=== PATIENT | male | born 1940 | race Caucasian/White ===

== ENCOUNTER 2017-02-09 13:14 | Day surgery (SDC) | payer MEDICARE ==
[2017-02-05 14:51] VITALS: BMI 26.9
[2017-02-09 13:43] LABS: Basophils % (A) 0 %; CH 30.2; CHCM 34.2; Eosinophils # (A) 0.1 k/uL (0-0.7); Eosinophils % (A) 1 %; HCT 46.4 % (39.0-53.0); HDW 2.61; HGB 15.7 gm/dL (13.0-17.5); Luc # (Auto) 0.17; Luc % (Auto) 3; Lymphocytes # (A) 1.8 k/uL (1.0-4.8); Lymphocytes % (A) 34 %; MCH 30.1 pg (25.0-35.0); MCHC 33.9 g/dL (31.0-37.0); MCV 88.7 fL (80.0-100.0); Monocytes # (A) 0.3 k/uL (0-1.0); Monocytes % (A) 6 %; Neutrophils # (A) 2.9 k/uL (1.3-7.7); Neutrophils % (A) 55 %; RBC 5.23 m/uL (4.30-5.90); RDW 13.3 % (11.5-15.5); WBC 5.2 k/uL (3.8-10.6); WBC (Perox) 5.32
[2017-02-09] MEDS ORDERED: fentaNYL (PF) 50 MCG/ML 2 ML AMP ONE (15:01)
[2017-02-09] MEDS ORDERED: PROPOFOL 10 MG/ML 20 ML VIAL IV ONE (15:01)
[2017-02-09] MEDS ORDERED: MIDAZOLAM 2 MG/2 ML VIAL ONE (15:01)
[2017-02-09] MEDS ORDERED: ISOPROTERENOL 250 MCG/1.25 ML SYR IV ONE (15:01)
[2017-02-09] MEDS ORDERED: diphenhydrAMINE 50 MG/ML 1 ML VIAL ONE (15:01)
[2017-02-09] MEDS ORDERED: IV FLUID CONTINUATION 900 ML IV ONE (15:01)
[2017-02-09] MEDS ORDERED: LIDOCAINE 2% INJ 20 MG/ML SQ ONE ×2 (15:38→15:40)
[2017-02-09] MEDS ORDERED: HEPARIN SODIUM (1,000 UNIT/ML) 1,000 UNIT in SODIUM CHLORIDE 0.9% 1,000 ML IRRIGATION ONE (16:02)
[2017-02-09] MEDS ORDERED: LACTATED RINGERS 1,000 ML IV ONE (18:44)
[2017-02-09] MEDS ORDERED: ACETAMINOPHEN TAB 325 MG TAB PO PRN (19:11)
--- NOTE | 2017-02-09 19:21 | P.PCN ---
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
[2017-02-09] MEDS ORDERED: FUROSEMIDE 10 MG/ML 2 ML VIAL IV STA (19:31)
[2017-02-09] MEDS ORDERED: ACETAMINOPHEN IV (For NPO) 1,000 MG in EMPTY BAG 1 BAG IVPB ONE (20:15)
--- NOTE | 2017-02-09 20:36 | CE ---
This is a 77-year-old male patient who was referred by Dr. Way for evaluation and management of recurrent atrial flutter. He has a prolonged FL interval at baseline and I recommended atrial flutter ablation. The patient was brought to the EP lab in the fasting state. Written informed consent was obtained prior to the procedure. The right and left groins were prepped and draped as per protocol. Two venous sheaths were placed in the right femoral vein and one venous sheath in the left femoral vein. Diagnostic catheters in the high right atrial area, His bundle area, RV and coronary sinus were placed. Laser mapping and ablation catheters were placed and intracardiac echo catheter was placed. The sinus cycle length 958 ms, FL interval 288 ms at baseline, QRS 160 ms, QT interval 423 ms. Baseline AH interval 59 ms, baseline HV interval 43 ms. Sinus node recovery times were 600, 500 and 400 ms, were 924, 1222 and 1192 ms, corresponding corrected sinus node recovery times were normal limits. Slow pathway conduction was noted at a pacing cycle length of 460 ms, AV evan Wenckebach block 410 ms. VA Wenckebach block pattern at less than 400 ms, which improved on Isuprel. On Isuprel, SVT with short septal time was very easily induced both spontaneously on Isuprel as well as with minimal pacing either in the right ventricle or in the high right atrium. Entrainment was performed from the RV; however, the tachycardia repeatedly terminated, but the tachycardia was consistent with AV evan re-entry with a very short septal time of less than 60 ms. Intracardiac echocardiography was performed. The cavo-tricuspid isthmus was mapped and the pouches were identified. The thick eustachian ridge was identified. RF ablation was performed using the irrigated-tip catheter with adequate contact force and power of between 30-35 moyer. A complete anatomic line of block was made from the tricuspid annulus to the IVC. Testing of this line revealed in the isthmus conduction time was greater than 189 ms in either direction. This was uniform all along the line. Subsequently, bi-directional block was also proven with differential pacing. Following that, Isuprel was used and SVT was very easily induced. This SVT was consistent with AV evan re-entry. Therefore, a different sheath was used. The irrigated-tip catheter was used; 20 moyer of power was used. Mapping of the slow pathway and mapping of the His bundle cloud and the coronary sinus was performed. The His bundle cloud was quite close to the coronary sinus os and was rather low. RF ablation was initially performed just anterior and below the coronary sinus; however, this did not result in elimination of the tachycardia. RF ablation, mapping and ablation was performed off the coronary sinus os, off the septum and even this did not result in elimination of the slow pathway and SVT could be induced very easily on Isuprel. It took 2 hours for mapping and ablation of the slow pathway. We finally achieved elimination of the slow pathway as well as change in the VA conduction time when RF ablation was performed within the coronary sinus at its roof. A linear lesion was made along the roof within the coronary sinus and about 0.5 cm within the coronary sinus was where the successful lesion was applied. 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 However, this was finally not needed. This mapping and ablation procedure was a long one that required careful assessment of the FL interval after every RF lesions, since the baseline FL interval was prolonged at 288 ms, the anatomy and the relative position of the His bundle versus the coronary sinus was unusual and were close to one another. However, the FL interval did not prolong or worsen with RF ablation and remained stable. At the end of the procedure, the VA Wenckebach block was 470 ms, AV node Wenckebach block 440 from the coronary sinus and 390 from the high right atrium. There was no evidence of slow pathway conduction RESULTS: 1. Successful mapping and ablation of atrial flutter. 2. 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 3. Baseline FL interval is 288 ms and this remained unchanged following successful ablations. 4. The patient tolerated the procedure well without any acute complications. PLAN: Watch FL interval. Watch for development of atrial fibrillation. Avoid AV evan blocking drugs and anti-arrhythmic drugs for any future episodes of atrial fibrillation. This was discussed with the patient's .
--- NOTE | 2017-02-09 20:44 | LTR ---
February 09, 2017 RE: Nav Rabago Dear Dr. Way: Thank you for referring Mr. Nav Rabago for electrophysiologic evaluation for atrial flutter. Mr. Rabago has a prolonged NC interval at baseline and therefore is not a good candidate for anti-arrhythmic drug therapy. In any case, I recommended atrial flutter ablation because of his high success rate. He underwent successful atrial flutter ablation with complete bidirectional block across the RF line. Following that, testing revealed that he also had AV evan re-entry. This was a more difficult mapping procedure because of unusual relationship between the His bundle and the coronary sinus. In addition, his NC interval is prolonged at baseline. This was a left-sided AV evan re-entrant tachycardia and successful ablation was finally achieved within the body of the coronary sinus at its roof just about a centimeter inside of the coronary sinus os. In any case, both these arrhythmias have been successfully eliminated, but obviously Mr. Rabago remains at risk of atrial fibrillation. He is not a candidate for AV evan blocking drugs, nor is he a candidate for anti-arrhythmic drug therapy if he were to develop atrial fibrillation in the future. Certainly, management of obstructive sleep apnea will reduce his future episodes of atrial arrhythmias. Once again, thank you for entrusting me with the care of your patient. Warm regards. Sincerely, ALLYN GREEN MD
[2017-02-09] MEDS: SODIUM CHLORIDE 0.9% 1,000 ML IV SCH (22:23)
[2017-02-09] MEDS: APIXABAN 5 MG TAB PO SCH (23:02)
[2017-02-10] MEDS ORDERED: TEMAZEPAM 15 MG CAP PO PRN (00:17)
[2017-02-10 04:21] VITALS: RESP 18
--- NOTE | 2017-02-10 07:58 | P.DS ---
Providers Attending physician: Nawaf Martinez Primary care physician: Stated None Hospital Course: Patient is doing well. 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 and elimination of slow pathway antegradely and prolongation of VA conduction times Prolonged IA interval at baseline, 280 ms LACY VASC score of at least 2, anticoagulation indicated Plan Continue anticoagulation, discussed with the patient today He finds it difficult to afford the newer agents and therefore he may switch to Coumadin until his insurance changes in August 2017 Avoid AV evan blocking drugs completely including beta blockers and diltiazem, verapamil and digoxin If he has paroxysms of symptomatic atrial fibrillation, rate control medications were be problematic and would necessitate permanent pacing. Cryoblation may be considered for symptomatic PAF in the future, if need be Discharge home today in follow-up on Wednesday for a groin check Follow-up Holter monitor in 6 weeks and follow-up with Dr. Koenig in 8 weeks Patient Condition at Discharge: Stable Plan - Discharge Summary Discharge Medication List Apixaban [Eliquis] 5 mg PO BID 02/05/17 [History] Cholecalciferol [Vitamin D3] 2,000 unit PO DAILY 02/05/17 [History] [place]-3 Fatty Acids/Fish Oil [Fish Oil 1,000 mg Softgel] 1 each PO DAILY [History] Saw [place] 450 mg PO DAILY 02/05/17 [History] Activity/Diet/Wound Care/Special Instructions: Post EP study - Ablation instructions 1. Keep access sites dry for 2 days. 2. No heavy lifting or straining for 2 days. 3. Avoid bending the hips repeatedly for 2 days. 4. You may go up and down stairs slowly Call if the following is noted 1. Bleeding, increasing swelling or pain at the access sites. 2. Increasing chest discomfort, especially upon taking a deep breath. 3. Increasing shortness of breath, at rest or with exertion. 4. Undue cough / phlegm 5. Difficulty or pain while swallowing. 6. Pain or change in color in the extremities. 7. Fever, chills, rigors. 8. Increasing headache or neurologic symptoms. 9. Dizziness, fainting, palpitations Follow-up on Wednesday Discharge Disposition: HOME SELF-CARE
[2017-02-10] MEDS: APIXABAN 5 MG TAB PO SCH (09:15)
[2017-02-10 11:58] VITALS: BP 109/61; PULSE 68; TEMP 97.9
[2017-02-10] MEDS: SODIUM CHLORIDE 0.9% 1,000 ML IV SCH (13:33)
== END 2017-02-10 13:40 | disposition home or self-care (01) ==
LOC: CATHEP 13:14 → 3OBS 19:09 → CATHEP 02-10 13:40
PROVIDERS: ATTEND Internal Medicine Clinical Cardiac Electrophysiology
DX: I48.3 Typical atrial flutter (principal); G47.33 Obstructive sleep apnea (adult) (pediatric); Z99.89 Dependence on other enabling machines and devices; Z79.01 Long term (current) use of anticoagulants; Z79.82 Long term (current) use of aspirin; Z79.899 Other long term (current) drug therapy
CPT/HCPCS: 93623; 93613; 93653; 93655; 85025; C1894; C1769; C1893 ×2; C1730 ×3; C1759; C1732; J2001; J2250; J1200; J1940; J3010; J1644; J2704; 93662

== ENCOUNTER 2017-03-15 11:07 | Day surgery (SDC) | payer MEDICARE ==
[2017-03-12 09:02] VITALS: BMI 26.4
[~2017-03-15 11:07] MED LIST: SODIUM CHLORIDE 0.9% 1,000 ML IV SCH; ceFAZolin 1,000 MG in SODIUM CHLORIDE 0.9% IRRIGATIO 250 ML IRRIGATION ONE
[2017-03-15 11:27] VITALS: TEMP 97.7
[2017-03-15 11:44] LABS: Basophils # (A) 0.1 k/uL (0-0.2); Basophils % (A) 1 %; CH 30.5; CHCM 33.6; Eosinophils # (A) 0.1 k/uL (0-0.7); Eosinophils % (A) 2 %; HCT 47.1 % (39.0-53.0); HDW 2.47; HGB 15.3 gm/dL (13.0-17.5); Luc # (Auto) 0.13; Luc % (Auto) 2; Lymphocytes # (A) 1.5 k/uL (1.0-4.8); Lymphocytes % (A) 28 %; MCH 29.5 pg (25.0-35.0); MCHC 32.4 g/dL (31.0-37.0); Mean Platelet Volume 6.2; Monocytes # (A) 0.3 k/uL (0-1.0); Monocytes % (A) 6 %; Neutrophils # (A) 3.3 k/uL (1.3-7.7); Neutrophils % (A) 61 %; RBC 5.18 m/uL (4.30-5.90); RDW 13.4 % (11.5-15.5); WBC 5.4 k/uL (3.8-10.6); WBC (Perox) 5.23
[2017-03-15 11:56] LABS: Anion Gap 8 mmol/L; Blood Urea Nitrogen 17 mg/dL (9-20); Calcium 9.3 mg/dL (8.4-10.2); Carbon Dioxide 26 mmol/L (22-30); Chloride 107 mmol/L (98-107); Glucose 93 mg/dL (74-99); Non-African American GFR(MDRD) >60 (>60 ml/min/1.73 sqM); Potassium 4.3 mmol/L (3.5-5.1); Sodium 141 mmol/L (137-145)
[2017-03-15] MEDS ORDERED: MIDAZOLAM 2 MG/2 ML VIAL ONE (13:49)
--- NOTE | 2017-03-15 13:55 | P.DS ---
Providers Attending physician: Nawaf Martinez Primary care physician: Stated None Hospital Course: Twelve-lead ECG report Sinus mechanism heart rates 55 beats a minute [place] interval mildly prolonged to 56 ms narrow QRS normal ST segments normal QT interval Tilt table test report Baseline blood pressure 117/76. His mercury Baseline heart rate 67 beats a minute Patient was tilted upright while of 70 per protocol There was a gradual decline in his blood pressure to 90 mmHg with thereafter there was a sudden drop in blood pressure to 70 mmHg the sudden drop in heart rate with pauses when he is laid supine his heart rate and blood pressure normalized. He briefly passed out during this episode Impression Mixed neuro cardiogenic response to upright tilting with simultaneous drop in heart rate and blood pressure. Lowest heart rate of 32 beats a minute Normalization of blood pressure and heart rate upon resuming supine position Patient Condition at Discharge: Stable Plan - Discharge Summary Discharge Medication List Apixaban [Eliquis] 5 mg PO BID 02/05/17 [History] Cholecalciferol [Vitamin D3] 2,000 unit PO DAILY 02/05/17 [History] [place]-3 Fatty Acids/Fish Oil [Fish Oil 1,000 mg Softgel] 1 each PO DAILY [History] Saw [place] 450 mg PO DAILY 02/05/17 [History] Omeprazole [PriLOSEC] 10 mg PO DAILY 03/12/17 [History]
[2017-03-15] MEDS: MIDAZOLAM 2 MG/2 ML VIAL IVP ONE ×2 (14:00→14:06)
[2017-03-15] MEDS: ceFAZolin 2 GM in SODIUM CHLORIDE 0.9% 100 ML IVPB ONE ×2 (14:00→14:07)
[2017-03-15] MEDS ORDERED: LIDOCAINE 2% INJ 20 MG/ML SQ ONE (14:02)
[2017-03-15] MEDS ORDERED: SODIUM CHLORIDE 0.9% 500 ML IV ONE (14:06)
--- NOTE | 2017-03-15 14:15 | P.PCN ---
Preoperative Diagnosis: Loop monitor implant Primary physicians: Field Care Coordinator: Dr. Koenig Indication: And dizzy spells and syncope, mildly prolonged RI interval of 256 ms Patient was brought to the EP lab in a fasting state. Written informed consent was obtained prior to the procedure. The left pectoral area was prepped and draped per protocol. Intravenous antibiotic was administered preoperatively. A subcutaneous Loop monitor was implanted successfully and the wound was closed per protocol. The device was programmed to detect significant anu- arrhythmic and tachy-arrhythmic events, per protocol. Device and programming details: Syncope protocol programmed Patient underwent EP procedure under conscious sedation/moderate sedation, monitoring of the level of consciousness and physiologic parameters including but not limited to vital signs and oxygenation. Patient tolerated the procedure well without any acute complications. Start time: 1402 Stop time: 1413 1 mg IV Versed Disposition: same day
--- NOTE | 2017-03-15 14:18 | P.PCN ---
Preoperative Diagnosis: Twelve-lead ECG report Sinus mechanism heart rates 55 beats a minute [place] interval mildly prolonged to 56 ms narrow QRS normal ST segments normal QT interval Tilt table test report Baseline blood pressure 117/76. His mercury Baseline heart rate 67 beats a minute Patient was tilted upright while of 70 per protocol There was a gradual decline in his blood pressure to 90 mmHg with thereafter there was a sudden drop in blood pressure to 70 mmHg the sudden drop in heart rate with pauses when he is laid supine his heart rate and blood pressure normalized. He briefly passed out during this episode Impression Mixed neuro cardiogenic response to upright tilting with simultaneous drop in heart rate and blood pressure. Lowest heart rate of 32 beats a minute Normalization of blood pressure and heart rate upon resuming supine position Disposition: same day
[2017-03-15 14:36] VITALS: BP 124/77; PULSE 54; RESP 16
== END 2017-03-15 14:55 | disposition home or self-care (01) ==
LOC: CATHEP 11:07
PROVIDERS: ATTEND Internal Medicine Clinical Cardiac Electrophysiology
DX: R55 Syncope and collapse (principal); I47.1 Supraventricular tachycardia; I48.3 Typical atrial flutter; G47.33 Obstructive sleep apnea (adult) (pediatric); Z79.01 Long term (current) use of anticoagulants
CPT/HCPCS: 93005; 33282; 93660; 80048; 85025; 99152; C1764; J2001; J2250; J0690

== ENCOUNTER → 2017-04-22 | Outpatient (CLI) | payer MEDICARE ==
--- NOTE | 2017-04-22 16:12 | PN ---
DATE OF SERVICE: 04/22/2017 This patient is a 77-year-old gentleman who has been followed in the sleep center for treatment of obstructive sleep apnea-hypopnea syndrome and excessive daytime sleepiness. Patient is on treatment with CPAP with a pressure of 9 cm of water. I checked his CPAP unit. It showed that patient used it every night for the whole night 100% of the time with average usage for 6 hours. Patient's usual sleep schedule is from around 11:30 p.m. until 6 a.m. If he goes to bed earlier, then he gets up earlier. He sleeps well during the night. He is practically able to sleep through the whole night without awakenings, but patient continues to have significant excessive daytime sleepiness during the day. He falls asleep while reading the newspaper, falls asleep while working on his computer. [place] Sleepiness Scale is 20. He naps during the day and feels better right after the naps. Patient does not remember dreams during naps, but at night he dreams. He does not remember dreams while falling asleep. MEDICATIONS: 1. Aspirin. 2. Eliquis. 3. Vitamins. PHYSICAL EXAMINATION: Patient in no distress. VITAL SIGNS: BP 140/72, HR 54, RR 16. Height 6 feet 3 inches. Weight 206. BMI 25.7. Temperature 97.7. Oxygen saturation at room air 95%. HEENT: PERRLA, EOMI. Evaluation of oropharynx showed tongue protrudes midline; extremely low position of soft palate. NECK: Supple. No JVD. Thyroid is not palpable. LUNGS: Clear to percussion and to auscultation. Good air exchange. No wheezing or rhonchi. HEART: S1, S2 regular. No murmurs, gallops or rubs. ABDOMEN: Soft and nontender. Bowel sounds are present. No organomegaly appreciated. EXTREMITIES: No clubbing or cyanosis. CLAMP FORKLIFT OPERATOR: Awake, alert, and oriented x3. Cranial nerves 2 to 7 intact. There is no fasciculation or atrophy noted. No focal deficits observed. IMPRESSION: 1. Obstructive sleep apnea-hypopnea syndrome. Patient demonstrated 100% compliance with treatment but continues to have significant excessive daytime sleepiness during the day, which dictates necessity to question additional diagnosis of hypersomnia. 2. History of episodes of paroxysmal atrial flutter. 3. History of hypertension. 4. Acid reflux. PLAN: 1. Continue treatment with CPAP at the pressure of 9 cm of water every night for the whole night. 2. We will proceed with multiple sleep latency test after the night on CPAP in sleep center, when we will recheck his pressure to be sure that his respiration is under control. 3. Sleep hygiene with regular time in bed for at least 8 hours. 4. No driving if feeling any sleepiness. 5. I will see the patient for follow-up visit after testing is done, following the plan. Thank you very much for allowing me to participate in the management of your patient. Sincerely, Kamlesh Way MD, PhD, FAASM. Diplomat of [place] [employer], Sleep Medicine Board by [employer], [place] [employer]
== END | disposition home or self-care (01) ==
LOC: SLEEP 10:27
PROVIDERS: ATTEND Internal Medicine
DX: G47.33 Obstructive sleep apnea (adult) (pediatric) (principal); Z79.899 Other long term (current) drug therapy; I48.92 Unspecified atrial flutter

== ENCOUNTER → 2017-10-07 | Outpatient (CLI) | payer MEDICARE ==
--- NOTE | 2017-10-07 16:48 | PN ---
PROGRESS NOTE DATE OF SERVICE: 10/07/2017 77-year-old gentleman has been followed in Sleep Center for treatment of obstructive sleep apnea-hypopnea syndrome and excessive daytime sleepiness. Recently we proceed with CPAP titration and multiple sleep latency test on the following day. With the titration patient respiration was on full control with the pressure of 9 cm of water. At that pressure, apnea-hypopnea index was 0.3. On the following day, the patient had multiple sleep latency test with 5 naps. Mean sleep latency was 7.5 minutes, which is less than 8 minutes and subsequently could be considered indication for possible hypersomnia like narcolepsy. I discussed results of the sleep study with the patient. She continued to use CPAP equipment every night. I checked CPAP unit. Usage is 70/30 nights for more than 4 hours, average 6.7 hours. [place] Sleepiness Scale today is 20. MEDICATIONS: Eliquis, fish oil, prostate supplement, vitamin D3 2000 mg. PHYSICAL EXAM: Patient in no distress, BP 105/69, HR 78, RR 16, weight 217, temperature 97.3, oxygen saturation room air 95%. Oropharynx low position of soft palate. Heart rate is normal and there is no atrial fibrillation. Neck Supple, no JVD. Thyroid is not palpable. LUNGS Clear to percussion and to auscultation. Good air exchange. No wheezing or rhonchi. HEART S1, S2 regular. No murmurs, gallops, or rubs. ABDOMEN Soft and nontender. Bowel sounds are present. No organomegaly appreciated. EXTREMITIES No clubbing or cyanosis. LABEL MAKER Awake, alert, and oriented X3. Cranial nerves 2 to 7 intact. There is no fasciculation or atrophy. noted. No focal deficits observed. IMPRESSION: 1. Obstructive sleep apnea-hypopnea syndrome on control with CPAP at 9 cm of water. 2. Multiple sleep latency test confirmed sleepiness while patient is on full-time treatment with CPAP. 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 3. History of episodes of paroxysmal atrial flutter noted recently. 4. History of hypertension in the past about 40 years ago. 5. Acid reflux occasionally. PLAN: 1. I will start the patient on treatment with modafinil, starting with the smallest dose, slowly adjusting dose to prevent sleepiness. 2. Continue to use CPAP equipment every night. 3. Sleep hygiene with regular time in bed for at least 8 hours. 4. No driving if feeling sleepiness. Thank you very much for allowing me to participate in management of your patient. Sincerely, Kamlesh Way MD, PhD, FAASM Diplomat of [employer] [employer] [employer] Addressograph Operator of [facility] [place] MMODL / DERIANN: [id number] /
== END | disposition home or self-care (01) ==
LOC: SLEEP 14:48
PROVIDERS: ATTEND Internal Medicine
DX: G47.33 Obstructive sleep apnea (adult) (pediatric) (principal); K21.9 Gastro-esophageal reflux disease without esophagitis; Z86.79 Personal history of other diseases of the circulatory system; Z79.01 Long term (current) use of anticoagulants

== ENCOUNTER → 2018-03-10 | Outpatient (CLI) | payer MEDICARE ==
--- NOTE | 2018-03-10 11:37 | SFUN ---
SLEEP CENTER FOLLOW UP NOTE DATE OF SERVICE: 03/10/2018 This 78-year-old gentleman had been followed in sleep center for treatment of obstructive sleep apnea-hypopnea syndrome. Patient continued to use his CPAP equipment every night for the whole night. He usually goes to bed around 11 or 12 and wakes up at 5 or 6 a.m. Subsequently, he sleeps for about 6 hours. He may feel sleepy during the day. [place] Sleepiness Scale increased to 21. If he goes to bed early than 11 then he gets up earlier. During the night for 6 hours, he sleeps through well. I checked his CPAP unit. CPAP pressure is 9 cm of water. Patient using it 100% of the time and more than 4 hours. Average usage is 6.1 hours. MEDICATIONS: Eliquis, fish oil, vitamin D3. PHYSICAL EXAM: During physical exam, gentleman without distress. VITAL SIGNS: BP 118/69, HR 82, RR 16, height , weight 217, which is the same as 1 year ago, BMI 26.9, temp 97.6, oxygen saturation on room air 95%. HEENT: PERRLA, EOMI. Oropharynx low position of soft palate. NECK: Supple, no JVD. Thyroid is not palpable. LUNGS: Clear to percussion and to auscultation. Good air exchange. No wheezing or rhonchi. HEART: S1, S2 regular. No murmurs, gallops, or rubs. ABDOMEN: Soft and nontender. Bowel sounds are present. No organomegaly appreciated. EXTREMITIES: No clubbing or cyanosis. HOSPITALITY HOUSEKEEPER: Awake, alert, and oriented X3. Cranial nerves 2 to 7 intact. There is no fasciculation or atrophy. noted. No focal deficits observed. IMPRESSION: 1. Obstructive sleep apnea-hypopnea syndrome. The patient demonstrated 100% compliance with treatment, benefitting from treatment. 2. 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 3. History of episodes of paroxysmal atrial fibrillation, atrial flutter. 4. History of hypertension. 5. Acid reflux. PLAN: 1. Continue treatment with CPAP every night for the whole night. 2. Sleep hygiene with regular time in bed for 7-1/2 hours. 3. Precautions related to driving. No driving if feeling sleepiness. 4. We will try to get patient modafinil treatment. Previously, patient tried to check and the delatorre was extremely high. He was not able to receive medication. He does not have drug coverage at the present time. Thank you very much for allowing me to participate in management of your patient. Sincerely, Kamlesh Way MD, PhD, FAASM Diplomat of [place] [employer] [employer] Performance Test Consultant of [facility] [place] MMODL / IJN: [id number] /
== END | disposition home or self-care (01) ==
LOC: SLEEP 10:22
PROVIDERS: ATTEND Internal Medicine
DX: G47.33 Obstructive sleep apnea (adult) (pediatric) (principal); K21.9 Gastro-esophageal reflux disease without esophagitis; Z86.79 Personal history of other diseases of the circulatory system; Z79.01 Long term (current) use of anticoagulants; Z79.899 Other long term (current) drug therapy; Z99.89 Dependence on other enabling machines and devices

== ENCOUNTER → 2019-05-11 | Outpatient (CLI) | payer MEDICARE ==
--- NOTE | 2019-05-11 13:08 | SFUN ---
SLEEP CENTER FOLLOW UP NOTE DATE OF SERVICE: 05/11/2019 This 79-year-old gentleman had been followed in sleep center for treatment of obstructive sleep apnea-hypopnea syndrome and significant excessive daytime sleepiness while he is on treatment with CPAP. Previous multiple sleep latency test confirmed sleepiness and with range of possible narcolepsy. Patient was recommended to try modafinil. He started to take modafinil, but in the same days he developed dizziness and he stopped taking modafinil and also he stopped taking several other medications. Presently, he continued to use his CPAP equipment every night without significant problems with the machine or CPAP equipment. He continued to feel sleepy during the day, but he able to correct it with short naps and after short naps for about 10 minutes his alertness become normal. Usually he feels sleepiness if he is not busy. If he is busy, he is able to keep himself in alert condition. I checked his CPAP unit. Usage is 29 out of 30 nights for more than 4 hours with average usage 6 hours. Machine does not have information about apnea-hypopnea index. [place] Sleepiness Scale is 20. MEDICATIONS: Metoprolol, , vitamins. PHYSICAL EXAMINATION: During physical exam, patient in no distress. VITAL SIGNS: BP 99/69, HR 67, RR 14, height 6 feet 2-1/2 inches, weight 213.0 pounds, body mass index 26.9, temperature 97.0, oxygen saturation at room air 95%. HEENT: PERRLA, EOMI. Oropharynx low position of soft palate. NECK: Supple, no JVD. Thyroid is not palpable. LUNGS: Clear to percussion and to auscultation. Good air exchange. No wheezing or rhonchi. HEART: S1, S2 regular. No murmurs, gallops, or rubs. ABDOMEN: Soft and nontender. Bowel sounds are present. No organomegaly appreciated. EXTREMITIES: No clubbing or cyanosis. VENTILATOR SPECIALIST: Awake, alert, and oriented X3. Cranial nerves 2 to 7 intact. There is no fasciculation or atrophy. noted. No focal deficits observed. IMPRESSION: 1. Obstructive sleep apnea-hypopnea syndrome. Patient demonstrated 100% compliance with treatment, benefitting from treatment. 2. 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 The patient was tried on treatment with modafinil for several days, but developed dizziness and patient stopped medication. With the usage of short naps, the patient is able to control his sleepiness during the day. 3. History of episodes of paroxysmal atrial fibrillation and atrial flutter. 4. 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 5. History of hypertension. 6. Acid reflux. PLAN: 1. Patient will continue to use CPAP equipment every night for the whole night. 2. We will replace CPAP unit as soon as he will be eligible with the insurance regulation to check reading for apnea-hypopnea index. 3. Sleep hygiene with regular time in bed for at least 8 hours. 4. Extreme precautions related to driving. No driving if feeling sleepiness. Patient is aware about civil and criminal liability for unsafe driving. 5. Patient will continue to take short naps during the day to prevent sleepiness. 6. Prescription for all necessary CPAP supplies. 7. Patient may try to use modafinil again. If any side effects, he will stop it. Thank you very much for allowing me to participate in management of your patient. Sincerely, Kamlesh Way MD, PhD, FAASM Diplomat of [employer] Tricot Knitter of [facility] [place] MMODL / DERIANN: [id number] /
== END | disposition home or self-care (01) ==
LOC: SLEEP 11:55
PROVIDERS: ATTEND Internal Medicine
DX: G47.33 Obstructive sleep apnea (adult) (pediatric) (principal); K21.9 Gastro-esophageal reflux disease without esophagitis; I10 Essential (primary) hypertension; Z86.79 Personal history of other diseases of the circulatory system; Z95.0 Presence of cardiac pacemaker; Z79.899 Other long term (current) drug therapy

== ENCOUNTER → 2019-11-09 | Outpatient (CLI) | payer MEDICARE ==
--- NOTE | 2019-11-09 11:15 | PN ---
PROGRESS NOTE DATE OF SERVICE: 11/09/2019 A 79-year-old gentleman who has been followed in the Sleep Center for treatment of obstructive sleep apnea-hypopnea syndrome and possible narcolepsy. Recently, patient received new CPAP unit and this is his first visit after he started to use new CPAP equipment. Patient continued to use CPAP equipment every night for the whole night. He used under the nose mask and then it was switched to nasal pillow mask again. [place] Sleepiness Scale today is 14. Previously we have tried patient on modafinil, but he developed some possible side effects. Presently sometimes taken short naps during the day. I checked CPAP unit. CPAP pressure is 9 cm of water. For the last 90 days, patient uses it every night more than 4 hours with average usage is 6.1 hours. Leak is quite high 41 L/minute. Apnea-hypopnea index is absolutely normal 1.3. During previous visit, [place] Sleepiness Scale was 20. MEDICATIONS: Metoprolol, Pradaxa, and vitamins. PHYSICAL EXAM: Patient in no distress. BP 108/69, HR 70, RR 16, height 6 and 2, weight 219.8, which is 6 pounds more than the previous visit about 6 months ago. Temperature 97.0, body mass index 28.1, oxygen saturation at room air 94%. OROPHARYNX: Low position of soft palate, Mallampati 4. NECK: Supple, no JVD. Thyroid is not palpable. LUNGS: Clear to percussion and to auscultation. Good air exchange. No wheezing or rhonchi. HEART: S1, S2 regular. No murmurs, gallops, or rubs. ABDOMEN: Soft and nontender. Bowel sounds are present. No organomegaly appreciated. EXTREMITIES: No clubbing or cyanosis. SPRING BENDER: Awake, alert, and oriented X3. Cranial nerves 2 to 7 intact. There is no fasciculation or atrophy. noted. No focal deficits observed. IMPRESSION: 1. Obstructive sleep apnea-hypopnea syndrome. Patient demonstrated 100% compliance with treatment, benefitting from treatment. 2. 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 3. History of episodes of paroxysmal atrial fibrillation and atrial flutter. 4. History of hypertension. 5. Acid reflux. PLAN: 1. Patient will continue to use CPAP equipment every night for the whole night with the same level of pressure. 2. We discussed the necessity to use distilled water for humidifier. 3. I will explain to patient how to adjust level of humidity. 4. Patient will continue to use a chin strap. 5. Sleep hygiene with regular time in bed for 7-1/2 - 8 hours. 6. Daytime naps permitted. 7. Precautions related to driving. No driving if feeling sleepiness. 8. A followup visit in 6 months or earlier if patient has any problems. Thank you very much for allowing me to participate in the management of your patient. Sincerely, Kamlesh Way MD, PhD, FAASM Diplomat of [place] Dairy Consultant of [facility] [place] MMODL / CARLEY: [id number] /
== END | disposition home or self-care (01) ==
LOC: SLEEP 10:01
PROVIDERS: ATTEND Internal Medicine
DX: G47.33 Obstructive sleep apnea (adult) (pediatric) (principal); K21.9 Gastro-esophageal reflux disease without esophagitis; Z99.89 Dependence on other enabling machines and devices; Z79.899 Other long term (current) drug therapy; Z86.79 Personal history of other diseases of the circulatory system

== ENCOUNTER → 2020-05-16 | Outpatient (CLI) | payer MEDICARE ==
--- NOTE | 2020-05-17 04:34 | SFUN ---
SLEEP CENTER FOLLOW UP NOTE DATE OF SERVICE: 05/16/2020 This is a 80-year-old gentleman who had been followed in sleep center for treatment of obstructive sleep apnea-hypopnea syndrome and significant excessive daytime sleepiness. Patient continued to use CPAP equipment every night for the whole night, but still has sometimes sleepiness during the day. The patient feels well if he has taken short naps. [place] Sleepiness Scale today is 17. I checked the patient CPAP unit. Usage is every night, average 6.1 hour per night. CPAP pressure is 9 cm of water. Apnea-hypopnea index only 1.4, but significant leak 48 L/minute. Patient receive a chinstrap, but he described that chin strap is wide and it is hot for him during the summer. MEDICATIONS: Sotalol, Pradaxa, vitamin D3, B12, fish oil. PHYSICAL EXAMINATION: GENERAL: Patient in no distress. VITAL SIGNS: BP 103/74, HR 60, RR 16, height 6 feet 2-1/2 inches, weight 212, body mass index 26.8, temperature 97.8, oxygen saturation on room air 97%. HEENT: PERRLA, EOMI. Oropharynx low position of soft palate. Mallampati 4. NECK: Supple, no JVD. Thyroid is not palpable. LUNGS: Clear to percussion and to auscultation. Good air exchange. No wheezing or rhonchi. HEART: S1, S2 regular. No murmurs, gallops, or rubs. ABDOMEN: Soft and nontender. Bowel sounds are present. No organomegaly appreciated. EXTREMITIES: No clubbing or cyanosis. TRAUMA DIRECTOR: Awake, alert, and oriented X3. Cranial nerves 2 to 7 intact. There is no fasciculation or atrophy. noted. No focal deficits observed. IMPRESSION: 1. Obstructive sleep apnea-hypopnea syndrome. Patient demonstrated 100% compliance with treatment, benefitting from treatment. 2. 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 Mean sleep latency 7.5 minutes without any sleep onset REM periods. Patient is able to correct his sleepiness with short naps during the day. 3. History of episodes of paroxysmal atrial fibrillation and atrial flutter. 4. Acid reflux. 5. History of hypertension. PLAN: 1. Follow-up visit in 6 months or earlier if patient has any problems. 2. I discussed with the patient the possibility to start daytime stimulants, for excessive daytime sleepiness, but we agreed that now while patient is controlling his sleepiness with short naps without any problems, we will not start any additional medications because of possibility of side effects. Thank you very much for allowing me to participate in management of your patient. Sincerely, Kamlesh Way MD, PhD, FAASM Diplomat of [place] [employer] [place] Equipment Validation Engineer of [facility] [employer] MMODL / DERIANN: [id number] /
== END | disposition home or self-care (01) ==
LOC: SLEEP 10:49
PROVIDERS: ATTEND Internal Medicine
DX: G47.33 Obstructive sleep apnea (adult) (pediatric) (principal); K21.9 Gastro-esophageal reflux disease without esophagitis; Z86.79 Personal history of other diseases of the circulatory system; Z79.01 Long term (current) use of anticoagulants; Z79.899 Other long term (current) drug therapy

== ENCOUNTER 2024-08-14 00:22 | Inpatient (IN) | payer MEDICARE ==
[2024-08-14] MEDS ORDERED: VANCOMYCIN 1,500 MG in SODIUM CHLORIDE 0.9% 250 ML IVPB SCH (02:00)
[2024-08-14 02:28] LABS: Basophils % (A) 0 %; Eosinophils # (A) 0.2 k/uL (0-0.7); Eosinophils % (A) 5 %; HCT 40.6 % (39.0-53.0); HGB 13.6 gm/dL (13.0-17.5); Lymphocytes # (A) 1.5 k/uL (1.0-4.8); Lymphocytes % (A) 30 %; MCH 31.2 pg (25.0-35.0); MCHC 33.6 g/dL (31.0-37.0); MCV 92.8 fL (80.0-100.0); Mean Platelet Volume 7.2; Monocytes # (A) 0.4 k/uL (0-1.0); Monocytes % (A) 7 %; Neutrophils # (A) 2.7 k/uL (1.3-7.7); Neutrophils % (A) 55 %; Platelet Count 235 k/uL (150-450); RBC 4.37 m/uL (4.30-5.90); RDW 13.1 % (11.5-15.5); WBC 4.9 k/uL (3.8-10.6)
[2024-08-14] MEDS: VANCOMYCIN 1,500 MG in SODIUM CHLORIDE 0.9% 500 ML IVPB SCH (02:28)
[2024-08-14 03:26] LABS: ALT 24 U/L (4-49); AST 28 U/L (17-59); African American GFR (CKD) >90 (>60 ml/min/1.73 sqM); Albumin 3.6 g/dL (3.5-5.0); Alkaline Phosphatase 47 U/L (38-126); Anion Gap 5 mmol/L; Blood Urea Nitrogen 17 mg/dL (9-20); C Reactive Protein 4.9 mg/dL (<1.0); Calcium 8.8 mg/dL (8.4-10.2); Carbon Dioxide 26 mmol/L (22-30); Chloride 110 mmol/L (98-107); Glucose 97 mg/dL (74-99); Non-African American GFR(CKD) 90 (>60 ml/min/1.73 sqM); Potassium 3.8 mmol/L (3.5-5.1); Sodium 141 mmol/L (137-145); Total Bilirubin 0.6 mg/dL (0.2-1.3); Total Protein 6.1 g/dL (6.3-8.2)
[2024-08-14] MEDS ORDERED: NALOXONE 0.4 MG/ML 1 ML VIAL IV PRN (04:01)
[2024-08-14] MEDS ORDERED: VANCOMYCIN IV PER PHARMACY 1 EACH MISC MISCELLANE PRN (04:09)
--- NOTE | 2024-08-14 04:10 | P.HPIM ---
History of Present Illness H&P Date: 08/14/24 Patient is a 84-year-old male with a PMH of BPH who presents to the emergency room transferred from [facility] for right hand and arm infection. The patient reports that this past Wednesday he was walking with an old deadbolt when he fell and suffered an abrasion of his right wrist where he landed on the deadbolt. He initially did not think much of it but then developed an ulcer in the area and subsequent pain and swelling which gradually worsened. He was seen at the [facility] emergency room on Thursday 08/09 where he was started on Keflex and discharged. The patient reports that despite taking the medications, he reported gradually worsening of his symptoms for which she was again seen in the emergency room on Wednesday. He was advised to either stay for an inpatient hospitalization or receive a few doses of Zosyn as an outpatient. The patient opted to receive 4 doses of IV Zosyn during the course of Wednesday and business excellence manager Wednesday. The patient was then restarted on the Keflex but notes that his symptoms worsened over the past 2 days and he subsequently returned to [place] from where he was given a dose of vancomycin along with a tetanus booster and was transferred to [facility]. He reports 3 out of 10 pain of the right hand and difficulty making a wrist due to the swelling. Denies paresthesias of the hand. Reports that the swelling was extending up into the right elbow but is mildly improved from before at the time of my interview. He denied experiencing fever, chills, chest pain, shortness of breath, nausea, vomiting, abdominal pain, diarrhea. Laboratory evaluation in the emergency room revealed a WBC count of 4.9, hemoglobin 13.6, sodium 141, chloride 110, lactic acid 0.6, with CRP 4.9. ED documentation reviewed and case discussed with ED provider. Review of systems: Pertinent positives and negatives as discussed in HPI, a complete review of systems was performed and all other systems are negative. Physical examination: Vital signs reviewed General: non toxic, no distress, appears at stated age Derm: R writs ventral 2-3 cm ulcer with purulent base with surrounding erythema extending to right medial elbow (area marked), R hand swelling noted, warm Head: atraumatic, normocephalic, symmetric Eyes: EOMI, no lid lag, anicteric sclera, pupils equal round reactive to light ENT: Nose and ears atraumatic Neck: No cervical lymphadenopathy, trachea midline, supple Mouth: no lip lesion, mucus membranes moist Cardiovascular: S1S2 reg, no murmur, positive dorsalis pedis pulse bilateral, no edema Lungs: CTA bilateral, no rhonchi, no rales, no accessory muscle use Abdominal: soft, nontender to palpation, no guarding Ext: muscle strength 5 out of 5 in all 4 extremities grossly, no gross muscle atrophy, no contractures, Neuro: CN II-XI grossly intact, no gross focal neuro deficits Psych: Alert, oriented, appropriate affect Assessment: Right wrist lesion with cellulitis, failed outpatient treatment Chronic conditions: BPH Imaging: None performed Data Review: Laboratory evaluation in the emergency room revealed a WBC count of 4.9, hemoglobin 13.6, sodium 141, chloride 110, lactic acid 0.6, with CRP 4.9. 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", see Dr Martinez H&P, hiatal hernia, uses cpap History of Any Multi-Drug Resistant Organisms: None Reported Past Surgical History: Cardiac Ablation, Heart Catheterization, Hernia Repair, Orthopedic Surgery Additional Past Surgical History / Comment(s): rectula fistula, ganglion cyst left wrist, and cataracts removed Past Anesthesia/Blood Transfusion Reactions: No Reported Reaction Past Psychological History: No Psychological Hx Reported Smoking Status: Never smoker Past Alcohol Use History: None Reported Past Drug Use History: None Reported - Past Family History Mother Family Medical History: No Reported History Medications and Allergies Home Medications Medication Instructions Recorded Confirmed Type Apixaban [Eliquis] 5 mg PO BID 02/05/17 03/15/17 History Cholecalciferol [Vitamin D3 (25 2,000 unit PO DAILY 02/05/17 03/15/17 History Mcg = 1000 Iu)] [employer]-3 Fatty Acids/Fish Oil [Fish 1 each PO DAILY 02/05/17 03/15/17 History Oil 1,000 mg Softgel] [place] 450 mg PO DAILY 02/05/17 03/15/17 History Omeprazole [PriLOSEC] 10 mg PO DAILY 03/12/17 03/15/17 History Allergies Allergy/AdvReac Type Severity Reaction Status Date / Time No Known Allergies Allergy Verified 08/14/24 00:28 Physical Exam Vitals: Vital Signs Temp Pulse Resp BP Pulse Ox 08/14/24 02:28 88 18 121/82 98 08/14/24 00:24 98.3 F 66 18 132/76 98 Intake and Output 08/13/24 08/13/24 08/14/24 14:59 22:59 06:59 Other: Weight 92.533 kg Results CBC & Chem 7: 08/14/24 02:12 08/14/24 02:12 Labs: Abnormal Lab Results - Last 24 Hours (Table) 08/14/24 Range/Units 02:12 Chloride 110 H (98-107) mmol/L C-Reactive Protein 4.9 H (<1.0) mg/dL Total Protein 6.1 L (6.3-8.2) g/dL
[2024-08-14] MEDS: FAMOTIDINE 20 MG TAB PO SCH (09:24)
--- NOTE | 2024-08-14 09:28 | ED ---
General Adult HPI - General Chief complaint: Skin/Abscess/Foreign Body Stated complaint: Cellulitis Time Seen by Provider: 08/14/24 00:46 Source: patient, family Mode of arrival: ambulatory Limitations: no limitations - History of Present Illness Initial comments: Pt is a pleasant 84-year-old gentleman with no significant past medical history presenting today as a transfer from [facility] for a right wrist infection. The patient tripped and fell causing a puncture wound on his right wrist this past Wednesday. He went to the emergency department where he was placed on cephalexin and discharged home. The redness around the wound worsened and on Wednesday he returned to the emergency department where he returned to the emergency department 3 times between Wednesday and Wednesday for IV antibiotics. Despite this the redness around the wound continued to worsen so he returned to the emergency department today where the decision was made to transfer him to [facility] for admission due to continued worsening of his infection. Patient given IV vancomycin at transferring facility. Patient states he has minimal pain, the redness has extended up his arm. He denies fevers, chills, nausea, vomiting. Of note patient's tetanus vaccine was updated at transferring facility. - Related Data Home Medications Medication Instructions Recorded Confirmed Allergy Otc 1 tab PO DAILY 08/14/24 08/14/24 Cephalexin [Keflex] 750 mg PO BID 08/14/24 08/14/24 Dabigatran [Pradaxa] 150 mg PO BID 08/14/24 08/14/24 Fluticasone Nasal [place] [Flonase 1 spray EA NOSTRIL DAILY 08/14/24 08/14/24 Nasal [place]] Multivitamins, Thera [Multivitamin 1 tab PO DAILY 08/14/24 08/14/24 (formulary)] Sotalol [Betapace] 40 mg PO Q12H 08/14/24 08/14/24 Tamsulosin [Flomax] 0.4 mg PO DAILY PRN 08/14/24 08/14/24 Allergies Allergy/AdvReac Type Severity Reaction Status Date / Time No Known Allergies Allergy Verified 08/14/24 10:23 Review of Systems ROS Statement: Those systems with pertinent positive or pertinent negative responses have been documented in the HPI. 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", see Dr Martinez H&P, hiatal hernia, uses cpap History of Any Multi-Drug Resistant Organisms: None Reported Past Surgical History: Cardiac Ablation, Heart Catheterization, Hernia Repair, Orthopedic Surgery Additional Past Surgical History / Comment(s): rectula fistula, ganglion cyst left wrist, and cataracts removed Past Anesthesia/Blood Transfusion Reactions: No Reported Reaction Past Psychological History: No Psychological Hx Reported Smoking Status: Never smoker Past Alcohol Use History: None Reported Past Drug Use History: None Reported - Past Family History Mother Family Medical History: No Reported History General Exam - General Exam Comments Initial Comments: PE: CONSTITUTIONAL: No apparent distress, well appearing SKIN: Warm, dry, no jaundice, hives or petechiae 1 cm puncture wound at the ventral aspect of the right wrist just over the distal radius. Surrounding erythema and scant discharge present. Erythema extends up the ventral aspect of the right forearm into the antecubital fossa and distal bicep. Minimal swelling present. Patient is able to flex and extend his wrist with full range of motion, he is able to flex his fingers however has pain with flexion. 2+ radial pulse palpated, extremities neurovascularly intact EYES: Pupils are equally round, extraocular movements intact without nystagmus, clear conjunctiva, non-icteric sclera HENT: Normocephalic, atraumatic, moist mucus membranes, oropharynx clear without exudates NECK: , Full range of motion, normal appearance PULMONARY: Clear to auscultation without wheezes, rhonchi, or rales, normal excursion, no accessory muscle use and no stridor CARDIOVASCULAR: Regular rate, rhythm, normal S1 and S2. No appreciated murmurs, rubs or gallops. Strong radial pulses with intact distal perfusion. No lower extremity edema GASTROINTESTINAL: Soft, non-tender, non-distended, no palpable masses, no rebound or guarding. No hepatosplenomegaly GENITOURINARY: MUSCULOSKELETAL: Please see skin exam above. Erythema noted around wound and ventral aspect of forearm up into the antecubital fossa, mild edema present throughout the hand, minimal swelling of the forearm ; patient will flex and extend his wrist through full range of motion able to flex His bicep, pain with active flexion of the fingers; remaining extremities have no gross deformity, no edema, redness, or swelling. No calf swelling ot TTP. NEUROLOGIC:_a/o x 3, GCS 15, normal mentation and speech. Moves all extremities x 4 without motor or sensory deficit PSYCHIATRIC:_normal mood and affect, thought process is clear and linear Limitations: no limitations Course Vital Signs 08/14/24 08/14/24 08/14/24 00:24 02:28 04:34 Temperature 98.3 F Pulse Rate 66 88 78 Respiratory 18 18 18 Rate Blood Pressure 132/76 121/82 118/78 O2 Sat by Pulse 98 98 98 Oximetry Medical Decision Making - Medical Decision Making Reviewed paperwork sent with patient from transferring facility, while there he received vancomycin, Toradol, IV fluids. Sodium 144, potassium 4.5, remaining CMP within normal limits, CRP 6.08, ESR 34, white blood cell count 5.8, hemoglobin 14.4, neutrophils 48%, blood cultures were drawn. HPI states that the patient had initially presented last Wednesday and was treated outpatient with Keflex. His redness and gotten worse and he returned on Wednesday and received IV Zosyn. Patient subsequently returned to the emergency department over the course of the day Wednesday and Wednesday morning for 3 more doses of Zosyn and was again discharged home on Keflex. Was pt. sent in by a medical professional or institution (, [place], DISTRICT COURT REPORTER, urgent care, hospital, or intermediate...) When possible be specific @ -Yes transferred from [facility] Did you speak to anyone other than the patient for history (EMS, parent, family, police, friend...)? What history was obtained from this source @ -No Did you review nursing and triage notes (agree or disagree)? Why? @ -I reviewed and agree with nursing and triage notes Were old charts reviewed (outside hosp., previous admission, EMS record, old EKG, old radiological studies, urgent care reports/EKG's, intermediate records)? Report findings @Please see above Differential Diagnosis (chest pain, altered mental status, abdominal pain women, abdominal pain men, vaginal bleeding, weakness, fever, dyspnea, syncope, headache, dizziness, GI bleed, back pain, seizure, CVA, palpatations, mental health, musculoskeletal)? @ -Differential diagnosis remains broad however top considerations include cellulitis, abscess, osteomyelitis, vasculitis, dermatitis, this is not all- inclusive list. It patient's exam is most consistent with cellulitis EKG interpreted by me (3pts min.). @ -As above X-rays interpreted by me (1pt min.). @ -None done CT interpreted by me (1pt min.). @ -None done U/S interpreted by me (1pt. min.). @ -None done What testing was considered but not performed or refused? (CT, X-rays, U/S, labs)? Why? @ -None What meds were considered but not given or refused? Why? @ -None Did you discuss the management of the patient with other professionals (professionals i.e. , PA, DISTRICT COURT REPORTER, lab, RT, psych nurse, social media sr strategy manager, sizing end bander, teacher, evp chief exploration officer, showcase trimmer)? Give summary @ -No Was smoking cessation discussed for >3mins.? @ -No Was critical care preformed (if so, how long)? @ -No Were there social determinants of health that impacted care today? How? (Homelessness, low income, unemployed, alcoholism, drug addiction, transpor tation, low edu. Level, literacy, decrease access to med. care, alf, rehab)? @ -No Was there de-escalation of care discussed even if they declined (Discuss DNR or withdrawal of care, Hospice)? @ -No What co-morbidities impacted this encounter? (DM, HTN, Smoking, COPD, CAD, Cancer, CVA, ARF, Chemo, Hep., AIDS, mental health diagnosis, sleep apnea, morbid obesity)? @ -None Was patient admitted / discharged? Hospital course, mention meds given and route, prescriptions, significant lab abnormalities, going to OR and other pertinent info. @ -Hospital course admitted Patient is a pleasant 84-year-old gentleman with no significant medical history presenting as a transfer from [facility] for treatment of cellulitis after failed outpatient therapy and a brief course of outpatient IV antibiotics. On my assessment patient is well-appearing and in no acute distress, nontoxic- appearing pleasant and alert. Physical exam performed and notable for edema of the right hand with puncture wound at the ventral lateral aspect of the right wrist with scant discharge and surrounding erythema. Extremity is neurovascularly intact. Reviewed reports from transferring facility. Discussed with patient plan for admission and will obtain repeat basic labs and ordered IV antibiotics. Of note wound and blood cultures were drawn at transferring facility. Patient is agreeable with plan of care. Case discussed with Dr. Guajardo, [facility], who kindly accepts for admission. Patient admitted in stable condition Undiagnosed new problem with uncertain prognosis? @ -No Drug Therapy requiring intensive monitoring for toxicity (Heparin, Nitro, Insulin, Cardizem)? @ -No Were any procedures done? @ -No Diagnosis/symptom? @ -Cellulitis Acute, or Chronic, or Acute on Chronic? @ -Acute Uncomplicated (without systemic symptoms) or Complicated (systemic symptoms)? @ -Uncomplicated Side effects of treatment? @ -No Exacerbation, Progression, or Severe Exacerbation? @ -No Poses a threat to life or bodily function? How? (Chest pain, [place], [place], pneumonia, PE, COPD, DKA, ARF, appy, cholecystitis, CVA, Diverticulitis, Homicidal, Suicidal, threat to staff... and all critical care pts) @ -Yes, potentially, patient has failed outpatient IV antibiotics and infection is worsen, poses a threat to right upper extremity function if allowed to progress and worsen additionally could progress to sepsis if left untreated - Lab Data Result diagrams: 08/15/24 04:12 08/15/24 04:12 Lab Results 08/14/24 08/14/24 08/14/24 Range/Units 02:12 02:12 02:12 WBC 4.9 (3.8-10.6) k/uL RBC 4.37 (4.30-5.90) m/uL Hgb 13.6 (13.0-17.5) gm/dL Hct 40.6 (39.0-53.0) % MCV 92.8 (80.0-100.0) fL MCH 31.2 (25.0-35.0) pg MCHC 33.6 (31.0-37.0) g/dL RDW 13.1 (11.5-15.5) % Plt Count 235 (150-450) k/uL MPV 7.2 Neutrophils % 55 % Lymphocytes % 30 % Monocytes % 7 % Eosinophils % 5 % Basophils % 0 % Neutrophils # 2.7 (1.3-7.7) k/uL Lymphocytes # 1.5 (1.0-4.8) k/uL Monocytes # 0.4 (0-1.0) k/uL Eosinophils # 0.2 (0-0.7) k/uL Basophils # 0.0 (0-0.2) k/uL Sodium 141 (137-145) mmol/L Potassium 3.8 (3.5-5.1) mmol/L Chloride 110 H (98-107) mmol/L Carbon Dioxide 26 (22-30) mmol/L Anion Gap 5 mmol/L BUN 17 (9-20) mg/dL Creatinine 0.67 (0.66-1.25) mg/dL Est GFR (CKD-EPI)AfAm >90 (>60 ml/min/1.73 sqM) Est GFR (CKD-EPI)NonAf 90 (>60 ml/min/1.73 sqM) Glucose 97 (74-99) mg/dL Plasma Lactic Acid Samm 0.6 L (0.7-2.0) mmol/L Calcium 8.8 (8.4-10.2) mg/dL Total Bilirubin 0.6 (0.2-1.3) mg/dL AST 28 (17-59) U/L ALT 24 (4-49) U/L Alkaline Phosphatase 47 (38-126) U/L C-Reactive Protein 4.9 H (<1.0) mg/dL Total Protein 6.1 L (6.3-8.2) g/dL Albumin 3.6 (3.5-5.0) g/dL Disposition Clinical Impression: Right arm cellulitis Disposition: ADMITTED IP TO THIS [facility] Condition: Good
[2024-08-14] MEDS: ENOXAPARIN 40 MG/0.4 ML SYRINGE SQ SCH (09:37)
[2024-08-14] MEDS: ACETAMINOPHEN TAB 325 MG TAB PO PRN (10:24)
[2024-08-14] MEDS: traMADol 50 MG TAB PO PRN (11:18)
--- NOTE | 2024-08-14 11:40 | P.PN ---
Progress Note - Text Progress Note Date: 08/14/24 Patient was seen and examined, we will order ID on hand surgery consult. Add Zosyn to vancomycin. Wound cultures to be ordered as well. Patient was advised to keep moving his right hand/fingers and right wrist joints.
[2024-08-14] MEDS: PIPERACILLIN-TAZOBACTAM 3.375 GM in SODIUM CHLORIDE 0.9% 100 ML IVPB SCH (12:50)
--- NOTE | 2024-08-14 15:05 | P.CNOR ---
History of Present Illness - [facility] Consult date: 08/14/24 Consult reason: other ( right wrist infection) History of present illness: Patient is an 84-year-old male who was transferred from [facility] to [facility] for further evaluation of a right wrist abscess. Apparently the patient was working with some steel early last week when he feels he scraped his right wrist with a screw. Over the next few days patient noticed some redness and swelling to that extremity. He was seen at [facility] on a few different occasions, he received both oral and IV medications. Over the weekend he spent 2 days the receiving IV antibiotics and the symptoms continue to worsen so he was transferred to our hospital for further care. Internal medicine has been managing patient, consults have been placed for infectious disease and our orthopedic team. Patient was evaluated at bedside today, he is resting comfortably, he is very pleasant on exam. He is having minimal discomfort at this time with the right wrist. He feels that the swelling in the hand and range of motion in the hand and fingers is improving. He continues to have discomfort with palpation near the wound on the wrist joint. There is a large area of marked out on the forea rm from the initial erythema that was noted to the proximal forearm/elbow, this is much improved. He denies any pain throughout the fingers with palpation, he denies any pain without palpation throughout the hand. He denies any range of motion pain at the elbow and shoulder. He denies any previous surgery to that upper extremity. He denies any fevers or chills. 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", see Dr Ayush dan H&P, hiatal hernia, uses cpap History of Any Multi-Drug Resistant Organisms: None Reported Past Surgical History: Cardiac Ablation, Heart Catheterization, Hernia Repair, Orthopedic Surgery Additional Past Surgical History / Comment(s): rectula fistula, ganglion cyst left wrist, and cataracts removed Past Anesthesia/Blood Transfusion Reactions: No Reported Reaction Past Psychological History: No Psychological Hx Reported Smoking Status: Never smoker Past Alcohol Use History: None Reported Past Drug Use History: None Reported - Past Family History Mother Family Medical History: No Reported History Medications and Allergies Home Medications Medication Instructions Recorded Confirmed Type Allergy Otc 1 tab PO DAILY 08/14/24 08/14/24 History Cephalexin [Keflex] 750 mg PO BID 08/14/24 08/14/24 History Dabigatran [Pradaxa] 150 mg PO BID 08/14/24 08/14/24 History Fluticasone Nasal [place] [Flonase 1 spray EA NOSTRIL DAILY 08/14/24 08/14/24 History Nasal [place]] Multivitamins, Thera [Multivitamin 1 tab PO DAILY 08/14/24 08/14/24 History (formulary)] Sotalol [Betapace] 40 mg PO Q12H 08/14/24 08/14/24 History Tamsulosin [Flomax] 0.4 mg PO DAILY PRN 08/14/24 08/14/24 History Allergies Allergy/AdvReac Type Severity Reaction Status Date / Time No Known Allergies Allergy Verified 08/14/24 10:23 Physical Examination Right upper extremity: A 1 x 1 cm wound was present on the volar aspect of the wrist near the ulnar carpal joint, there is purulent drainage noted. There is some surrounding erythema. Patient is very tender with palpation in that area there is fluctua nce also noted in that area. Soft tissue swelling is present in all digits, he is able to wiggle all the fingers and make a fist with no difficulty, there is no pain reproduced. There is no pain reproduced throughout the flexor tendons of the hand and fingers. Patient is nontender with palpation of the proximal forearm both dorsal and ventral aspect, he is nontender with palpation surrounding the elbow. There is no pain reproduced with pronation and supination of the forearm and elbow extens ion and flexion. Sensory exam to light touch is intact throughout the extremity Radial and ulnar pulse are 2+ Results - Labs Labs: Abnormal Lab Results - Last 24 Hours (Table) 08/14/24 08/14/24 Range/Units 02:12 02:12 Chloride 110 H (98-107) mmol/L Plasma Lactic Acid Samm 0.6 L (0.7-2.0) mmol/L C-Reactive Protein 4.9 H (<1.0) mg/dL Total Protein 6.1 L (6.3-8.2) g/dL H & H 08/14/24 Range/Units 02:12 Hgb 13.6 (13.0-17.5) gm/dL Hct 40.6 (39.0-53.0) % Result Diagrams: 08/14/24 02:12 08/14/24 02:12 Assessment and Plan Assessment: Right upper extremity cellulitis Right volar wrist abscess Other medical comorbidities Plan: I was able to discuss the case, this to include both physical exam findings and imaging studies and my attending Dr. Green. With patient's current physical exam findings and multiple rounds of oral antibiotics and IV antibiotics we are recommending surgical intervention at this time, this to include an incision and drainage with irrigation and debridement of the abscess. Surgery is scheduled for 08/15/2024, we will continue to reassess the patient as we continue the IV antibiotics. Consent to be obtained prior to procedure N.p.o. after midnight Monitor dressing, I did apply a new dressing at bedside today Ice wrist for symptomatic relief, patient is able to move all fingers and will continue to do this to help with swelling Other medical specialty recommendations appreciated Further recommendations to follow Time with Patient: Less than 30
[2024-08-14] MEDS: DABIGATRAN 150 MG CAP PO SCH (20:54)
[2024-08-14] MEDS: SOTALOL 80 MG TAB PO SCH (20:55)
--- NOTE | 2024-08-14 22:47 | P.CONS ---
History of Present Illness - Reason for Consult Consult date: 08/14/24 Right wrist abscess cellulitis Requesting physician: Julianna Shafer - Chief Complaint Right wrist swelling and redness x days - History of Present Illness Patient is a 84-year-old male with a past medical history of kidney for reflux sleep apnea prostate disorder apparently the patient did have injury to the right wrist when he landed on a deadbolt with initial abrasion subsequently developing swelling and redness to the right upper extremity for the patient has been evaluated and treated at the [facility] apparently the patient has received multiple doses of IV antibiotics however he is not very clear about the name on the subsequently evaluation the patient noticed to have worsening cellulitis. Patient has been transferred to [facility] patient denies having any fever or any chills has been complaining of pain to the right wrist area mostly dull aching mild to moderate intensity without any radiation with associated swelling redness and did have minimal drainage patient on presentation at this facility was afebrile and no fever have recorded subsequently patient was not tachycardic hypotensive or hypoxic he did have vital of 4.9 creatinine 0.67 electrolyte has been normal liver isms are normal CRP is 4.9 patient was initially started on vancomycin and Zosyn has been added subsequently infectious disease was consulted for further management of antibiotic therapy Review of Systems Positive point and negatives has been mentioned in the HPI, complete review of systems was performed and all other systems are negative 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", see Dr Martinez H&P, hiatal hernia, uses cpap History of Any Multi-Drug Resistant Organisms: None Reported Past Surgical History: Cardiac Ablation, Heart Catheterization, Hernia Repair, Orthopedic Surgery Additional Past Surgical History / Comment(s): rectula fistula, ganglion cyst left wrist, and cataracts removed Past Anesthesia/Blood Transfusion Reactions: No Reported Reaction Past Psychological History: No Psychological Hx Reported Smoking Status: Never smoker Past Alcohol Use History: None Reported Past Drug Use History: None Reported - Past Family History Mother Family Medical History: No Reported History Medications and Allergies Home Medications Medication Instructions Recorded Confirmed Type Allergy Otc 1 tab PO DAILY 08/14/24 08/14/24 History Cephalexin [Keflex] 750 mg PO BID 08/14/24 08/14/24 History Dabigatran [Pradaxa] 150 mg PO BID 08/14/24 08/14/24 History Fluticasone Nasal [place] [Flonase 1 spray EA NOSTRIL DAILY 08/14/24 08/14/24 History Nasal [place]] Multivitamins, Thera [Multivitamin 1 tab PO DAILY 08/14/24 08/14/24 History (formulary)] Sotalol [Betapace] 40 mg PO Q12H 08/14/24 08/14/24 History Tamsulosin [Flomax] 0.4 mg PO DAILY PRN 08/14/24 08/14/24 History Allergies Allergy/AdvReac Type Severity Reaction Status Date / Time No Known Allergies Allergy Verified 08/14/24 10:23 Physical Exam Vitals: Vital Signs Temp Pulse Pulse Resp BP BP Pulse Ox 08/14/24 08:00 16 08/14/24 07:00 98.0 F 61 16 121/71 97 08/14/24 04:34 78 18 118/78 98 08/14/24 02:28 88 18 121/82 98 08/14/24 00:24 98.3 F 66 18 132/76 98 Intake and Output 08/13/24 08/14/24 08/14/24 22:59 06:59 14:59 Intake Total 118 Balance 118 Intake: Oral 118 Other: Voiding Method Toilet Weight 92.533 kg GENERAL DESCRIPTION: Middle-aged male lying in bed, no distress. No tachypnea or accessory muscle of respiration use. HEENT: Shows Pallor , no scleral icterus. Oral mucous membrane is dry. No pharyngeal erythema or thrush NECK: Trachea central, no thyromegaly. LUNGS: Unlabored breathing. Clear to auscultation anteriorly. No wheeze or crackle. HEART: S1, S2, regular rate and rhythm. No loud murmur ABDOMEN: Soft, no tenderness , guarding or rigidity, no organomegaly EXTREMITIES: Right wrist did have a puncture wound with some slough tissue surrounding swelling and redness which has receded from the line placed previously SKIN: No rash, no masses palpable. NEUROLOGICAL: The patient is awake, alert, oriented x3, mood and affect normal. Results CBC & Chem 7: 08/14/24 02:12 08/14/24 02:12 Labs: Abnormal Lab Results - Last 24 Hours (Table) 08/14/24 08/14/24 Range/Units 02:12 02:12 Chloride 110 H (98-107) mmol/L Plasma Lactic Acid Samm 0.6 L (0.7-2.0) mmol/L C-Reactive Protein 4.9 H (<1.0) mg/dL Total Protein 6.1 L (6.3-8.2) g/dL Assessment and Plan (1) Cutaneous abscess of right wrist Current Visit: Yes Status: Acute Code(s): L02.413 - CUTANEOUS ABSCESS OF RIGHT UPPER LIMB SNOMED Code(s): 25185746048844243 (2) Right arm cellulitis Current Visit: Yes Status: Acute Code(s): L03.113 - CELLULITIS OF RIGHT UPPER LIMB SNOMED Code(s): 52732273880249718 Plan: 1patient presented to hospital with right wrist puncture wound with secondary cellulitis will need to cover for the gram-positive skin namita to the likely pathogen, cramp-like infection less likely bilateral excluded. 2await Ortho evaluation possible I&D and deep culture apparently culture has been obtained at the transferring facility and they will be contacted in the a.m. for any update on the culture report. 3vancomycin and Zosyn should provide adequate antibiotic coverage however kidney function need to monitor closely for this antibiotic combination if no gram-negative will recommend to discontinue Zosyn. Question concern answered. We will follow on clinical condition and cultures to further adjust medication if needed Thank you for this consultation we will follow the patient along with you Dictation was produced using [employer] dictation software. please excuse any grammatical, word or spelling errors. Time with Patient: Greater than 30
[2024-08-15 08:52] LABS: Basophils # (A) 0.03 X 10*3/uL (0.00-0.10); Basophils % (A) 0.7 %; Eosinophils # (A) 0.26 X 10*3/uL (0.04-0.35); Eosinophils % (A) 5.9 %; HCT 43.2 % (39.6-50.0); Lymphocytes # (A) 1.71 X 10*3/uL (0.90-5.00); Lymphocytes % (A) 38.6 %; MCH 29.7 pg (27.0-32.0); MCHC 32.4 g/dL (32.0-37.0); MCV 91.7 FL (80.0-97.0); Mean Platelet Volume 9.4 FL (9.5-12.2); Monocytes # (A) 0.43 X 10*3/uL (0.20-1.00); Monocytes % (A) 9.7 %; NRBC Per 100 WBC 0 X 10*3/uL (0.00-0.01); Neutrophils # (A) 1.99 X 10*3/uL (1.80-7.70); Neutrophils % (A) 44.9 %; Platelet Count 248 X 10*3/uL (140-440); RBC 4.71 X 10*6/uL (4.40-5.60); RDW 13.1 % (11.5-14.5); WBC 4.43 X 10*3/uL (4.50-10.00)
[2024-08-15 09:07] LABS: ALT 28 U/L (10-49); AST 22 U/L (14-35); Albumin/Globulin Ratio 1.74 Ratio (1.60-3.17); Alkaline Phosphatase 57 U/L (41-126); BUN/Creat Ratio 15.12 Ratio (12.00-20.00); Blood Urea Nitrogen 12.1 mg/dL (9.0-27.0); Calcium 8.8 mg/dL (8.7-10.3); Carbon Dioxide 21.3 mmol/L (21.6-31.8); Chloride 108 mmol/L (96-109); Globulin 2.3 g/dL (1.6-3.3); Glucose 92 mg/dL (70-110); Potassium 4.6 mmol/L (3.5-5.5); Sodium 139 mmol/L (135-145); Total Bilirubin 0.4 mg/dL (0.3-1.2); Total Protein 6.3 g/dL (6.2-8.2)
[2024-08-15] MEDS ORDERED: VANCOMYCIN TROUGH DUE 1 EACH MISC MISCELLANE ONE (13:00)
--- NOTE | 2024-08-15 14:30 | P.PN ---
Subjective Progress Note Date: 08/15/24 84-year-old male with a PMH of BPH who presents to the emergency room transferred from [facility] for right hand and arm infection. The patient reports that this past Wednesday he was walking with an old deadbolt when he fell and suffered an abrasion of his right wrist where he landed on the bolt. Attempted a trial of Keflex and 4 doses of IV Zosyn which did not improve his symptoms. In the ED he underwent extensive evaluation. BP 132/76, HR 66, T 98.3F, RR 18, 98% on RA. CBC and CMP significant for Cl 110, total protein 6.1. CRP 4.9. Lactic acid 0.6. Started on Vancomycin and Zosyn. ID and Ortho consulted. Plans for incision and drainage with irrigation and debridement of the abscess on 08/15. 08/15 Patient was seen in the morning. Reports well controlled pain. NPO for possible surgery today. CBC and CMP significant for WBC 4.43, bicarb 21.3. General: non toxic, no distress, appears at stated age Derm: warm, dry Head: atraumatic, normocephalic, symmetric Eyes: EOMI, no lid lag, anicteric sclera Mouth: no lip lesion, mucus membranes moist Cardiovascular: S1S2 reg, no murmur Lungs: Decreased BS bilateral, no rhonchi, no rales , no accessory muscle use Ext: no gross muscle atrophy, no edema, no contractures, R hand wrapped dressing c/d/i Neuro: no focal neuro deficits Psych: Alert, oriented, appropriate affect Based on my assessment of this patient, this patient meets a high complexity level of care. Right wrist lesion with cellulitis, failed outpatient treatment: Continue Vancomycin dosed per pharmacy and Cefepime 2g IV TID. Follow WCx and BCx. Plans for incision and drainage with irrigation and debridement of the abscess today. Ortho and ID on board. AFib: Sotolol 40 mg PO BID. Pradaxa 150 mg PO BID. BPH: Flomax 0.4 mg PO QD PRN. CODE STATUS: FULL CODE. DVT Prophylaxis: Pradaxa GI Prophylaxis: Designated medical POA if patient is not able to make medical decisions for themselves: I have reviewed the following staffing consultant notes: Ortho note. I have reviewed the results of the following tests: CBC, CMP. I have ordered the following tests: Vanc trough. BMP. I have discussed the care of this patient with the following independent historian: I have independently interpreted the following test below: I have discussed the management of this patient with the following physician: Objective - Vital Signs Vital signs: Vital Signs Temp 98.2 F 08/15/24 13:30 Pulse 63 08/15/24 13:30 Resp 17 08/15/24 13:30 BP 135/71 08/15/24 13:30 Pulse Ox 93 L 08/15/24 13:30 FiO2 Intake & Output 08/14/24 08/15/24 08/15/24 18:59 06:59 18:59 Intake Total 354 Output Total 2 Balance 352 Weight 92.533 kg Intake: Oral 354 Output: Stool 2 Other: Voiding Method Toilet Toilet Toilet # Voids 3 2 - Labs CBC & Chem 7: 08/15/24 04:12 08/15/24 04:12 Labs: Abnormal Lab Results - Last 24 Hours (Table) 08/15/24 08/15/24 Range/Units 04:12 04:12 WBC 4.43 L (4.50-10.00) X 10*3/uL MPV 9.4 L (9.5-12.2) FL Carbon Dioxide 21.3 L (21.6-31.8) mmol/L
[2024-08-15] MEDS: CEFEPIME 2 GM in SODIUM CHLORIDE 0.9% 100 ML IVPB SCH (16:11)
[2024-08-15] MEDS ORDERED: PROPOFOL 10 MG/ML 20 ML VIAL IV ONE (19:57)
[2024-08-15] MEDS ORDERED: LIDOCAINE 1% INJ 10MG/ML (20 ML MDV) ONE (19:57)
[2024-08-15] MEDS ORDERED: fentaNYL (PF) 50 MCG/ML 2 ML AMP ONE (19:57)
[2024-08-15] MEDS ORDERED: MIDAZOLAM 2 MG/2 ML VIAL ONE (19:57)
[2024-08-15] MEDS: LACTATED RINGERS 1,000 ML IV ONE (20:01)
[2024-08-15] MEDS: SODIUM CHLORIDE 0.9% 1,000 ML IV ONE (20:01)
[2024-08-15] MEDS: IV FLUID CONTINUATION 1,000 ML IV ONE ×2 (21:19→21:50)
[2024-08-15] MEDS: HYDROmorphone 0.5 MG/0.5 ML SYRINGE IVP STA (21:38)
[2024-08-15] MEDS: HYDROcodone/APAP 5-325MG 1 EACH TAB PO PRN (22:41)
--- NOTE | 2024-08-16 08:51 | P.PN ---
Subjective Progress Note Date: 08/15/24 Principal diagnosis: Reason for follow-up is right wrist and forearm cellulitis Patient is a 84-year-old male with a past medical history of kidney for reflux sleep apnea prostate disorder apparently the patient did have injury to the right wrist and subsequent developing cellulitis for the patient has been transferred to this facility culture done at the outside facility came back positive with Enterobacter. On today's evaluation that is 08/15/2024,the patient denies any fever or any chills, patient is breathing comfortably on room air, the patient denies chest pain shortness of breath and no significant cough, patient denies abdominal pain, no nausea vomiting or diarrhea., The patient pain to the right wrist has slightly decreased. The patient white count is 4.43, creatinine 0.8 Objective - Vital Signs Vital signs: Vital Signs Temp 97.4 F L 08/15/24 07:30 Pulse 62 08/15/24 07:30 Resp 18 08/15/24 08:00 BP 172/94 08/15/24 07:30 Pulse Ox 98 08/15/24 07:30 FiO2 Intake & Output 08/14/24 08/15/24 08/15/24 18:59 06:59 18:59 Intake Total 354 Output Total 2 Balance 352 Weight 92.533 kg Intake: Oral 354 Output: Stool 2 Other: Voiding Method Toilet Toilet Toilet # Voids 3 2 - Exam GENERAL DESCRIPTION: An elderly male lying in bed in no distress RESPIRATORY SYSTEM: Unlabored breathing , decreased breath sounds at bases HEART: S1 S2 regular rate and rhythm , ABDOMEN: Soft , no tenderness EXTREMITIES: Right forearm is currently dressed - Labs CBC & Chem 7: 08/15/24 04:12 08/15/24 04:12 Labs: Abnormal Lab Results - Last 24 Hours (Table) 08/15/24 08/15/24 Range/Units 04:12 04:12 WBC 4.43 L (4.50-10.00) X 10*3/uL MPV 9.4 L (9.5-12.2) FL Carbon Dioxide 21.3 L (21.6-31.8) mmol/L Assessment and Plan (1) Cutaneous abscess of right wrist Current Visit: Yes Status: Acute Code(s): L02.413 - CUTANEOUS ABSCESS OF RIGHT UPPER LIMB SNOMED Code(s): 80111977627090976 (2) Right arm cellulitis Current Visit: Yes Status: Acute Code(s): L03.113 - CELLULITIS OF RIGHT UPPER LIMB SNOMED Code(s): 22338868188470032 Plan: 1patient presented to hospital with right wrist puncture wound with secondary cellulitis will need to cover for the gram-positive skin namita to the likely pathogen, cramp-like infection less likely bilateral excluded. 2await Ortho evaluation possible I&D and deep culture apparently culture has been obtained at the transferring facility which has been faxed to twice this morning reviewed culture growing Enterobacter 3we will discontinue vancomycin and Zosyn start the patient on cefepime and monitor clinical course closely Dictation was produced using [employer] dictation software. please excuse any grammatical, word or spelling errors. Time with Patient: Less than 30
--- NOTE | 2024-08-16 12:21 | P.PN ---
Subjective Progress Note Date: 08/16/24 Principal diagnosis: Right wrist abscess Patient was evaluated at bedside, he is resting in his hospital bed. He notes minimal discomfort in the right hand/wrist. The postop dressing is in good position and condition. Denies headaches, lightheadedness, chest pain, shortness of breath, fever or chills Objective - Vital Signs Vital signs: Vital Signs Temp 98.7 F 08/16/24 07:00 Pulse 60 08/16/24 07:00 Resp 16 08/16/24 07:00 BP 126/61 08/16/24 07:00 Pulse Ox 95 08/16/24 07:00 FiO2 Intake & Output 08/15/24 08/16/24 08/16/24 18:59 06:59 18:59 Intake Total 950 118 Output Total 5 Balance 945 118 Weight 92.533 kg Intake: IV 950 Oral 118 Output: Estimated Blood Loss 5 Other: Voiding Method Toilet Toilet # Voids 4 1 # Bowel Movements 0 - Exam Right upper extremity: Postop dressing is in good position condition. He is able to wiggle all the fingers minimal difficulty, swelling seems to be improving slightly in the fingers. Sensation to light touch is intact throughout the extremity. Skin is warm to touch - Labs CBC & Chem 7: 08/15/24 04:12 08/15/24 04:12 Labs: Microbiology - Last 24 Hours (Table) 08/15/24 20:41 Gram Stain - Preliminary Wrist - Right Assessment and Plan Assessment: Postoperative day #1 status post I&D right wrist abscess, foreign body removal, carpal tunnel release Right wrist abscess Right wrist foreign body Other medical comorbidities Plan: Monitor dressing, plan for dressing change on 08/17/2024 Await culture and sensitivity results Ice wrist for symptomatic relief, patient is able to move all fingers and will continue to do this to help with swelling Other medical specialty recommendations appreciated Will continue to follow patient during hospital stay Time with Patient: Less than 30
--- NOTE | 2024-08-16 12:51 | P.PN ---
Subjective Progress Note Date: 08/16/24 84-year-old male with a PMH of BPH who presents to the emergency room transferred from [facility] for right hand and arm infection. The patient reports that this past Wednesday he was walking with an old deadbolt when he fell and suffered an abrasion of his right wrist where he landed on the bolt. Attempted a trial of Keflex and 4 doses of IV Zosyn which did not improve his symptoms. In the ED he underwent extensive evaluation. BP 132/76, HR 66, T 98.3F, RR 18, 98% on RA. CBC and CMP significant for Cl 110, total protein 6.1. CRP 4.9. Lactic acid 0.6. Started on Vancomycin and Zosyn. ID and Ortho consulted. Plans for incision and drainage with irrigation and debridement of the abscess on 08/15. 08/15 Patient was seen in the morning. Reports well controlled pain. NPO for possible surgery today. CBC and CMP significant for WBC 4.43, bicarb 21.3. 08/15 Patient was seen and examined. Pain well controlled. Underwent I&D right wrist abscess, foreign body removal, carpal tunnel release yesterday. Outside facility culture growing Enterobacter. Vancomycin and Zosyn switched to Cefepime by ID yesterday. OR cultures obtained yesterday shows few PMN and no organisms. No new labs done today. Ortho plans to re-dress tomorrow. Discussed with Dr. Carmichael, continue to monitor for one more day. General: non toxic, no distress, appears at stated age Derm: warm, dry Head: atraumatic, normocephalic, symmetric Eyes: EOMI, no lid lag, anicteric sclera Mouth: no lip lesion, mucus membranes moist Cardiovascular: S1S2 reg, no murmur Lungs: Decreased BS bilateral, no rhonchi, no rales , no accessory muscle use Ext: no gross muscle atrophy, no edema, no contractures, R hand wrapped dressing c/d/i Neuro: no focal neuro deficits Psych: Alert, oriented, appropriate affect Based on my assessment of this patient, this patient meets a high complexity level of care. Right wrist lesion with cellulitis, failed outpatient treatment: Outside wound Cx growing Enterobacter. OR culture pending. Vancomycin and Zosyn switched to Cefepime 2g IV TID yesterday. Follow final WCx. Status post I&D right wrist abscess, foreign body removal, carpal tunnel release yesterday. Ortho and ID on board. AFib: Sotolol 40 mg PO BID. Pradaxa 150 mg PO BID. BPH: Flomax 0.4 mg PO QD PRN. CODE STATUS: FULL CODE. DVT Prophylaxis: Pradaxa. GI Prophylaxis: Designated medical POA if patient is not able to make medical decisions for themselves: I have reviewed the following document management consultant notes: Ortho, ID note. I have reviewed the results of the following tests: Wound culture. I have ordered the following tests: I have discussed the care of this patient with the following independent historian: I have independently interpreted the following test below: I have discussed the management of this patient with the following physician: Objective - Vital Signs Vital signs: Vital Signs Temp 98.7 F 08/16/24 07:00 Pulse 60 08/16/24 07:00 Resp 16 08/16/24 07:00 BP 126/61 08/16/24 07:00 Pulse Ox 95 08/16/24 07:00 FiO2 Intake & Output 08/15/24 08/16/24 08/16/24 18:59 06:59 18:59 Intake Total 950 118 Output Total 5 Balance 945 118 Weight 92.533 kg Intake: IV 950 Oral 118 Output: Estimated Blood Loss 5 Other: Voiding Method Toilet Toilet # Voids 4 1 # Bowel Movements 0 - Labs CBC & Chem 7: 08/15/24 04:12 08/15/24 04:12 Labs: Microbiology - Last 24 Hours (Table) 08/15/24 20:41 Gram Stain - Preliminary Wrist - Right
--- NOTE | 2024-08-16 17:36 | P.PN ---
Subjective Progress Note Date: 08/16/24 Principal diagnosis: Reason for follow-up is right wrist and forearm cellulitis Patient is a 84-year-old male with a past medical history of kidney for reflux sleep apnea prostate disorder apparently the patient did have injury to the right wrist and subsequent developing cellulitis for the patient has been transferred to this facility culture done at the outside facility came back positive with Enterobacter.Patient is status post I&D right wrist abscess foreign body removal and carpal tunnel release procedure completed on 08/16/2024 no follow-up needed report is currently pending On today's evaluation that is 08/16/2024,the patient remains to be afebrile, patient is on room air not requiring supplemental oxygen and denies any shortness of breath no chest pain or cough.Patient denies having any nausea or vomiting, no abdominal pain and no diarrhea has been reported, the patient denies any worsening pain to the right wrist area. No new lab has been obtained today cultures are currently pending Objective - Vital Signs Vital signs: Vital Signs Temp 98.7 F 08/16/24 07:00 Pulse 60 08/16/24 07:00 Resp 16 08/16/24 07:00 BP 126/61 08/16/24 07:00 Pulse Ox 95 08/16/24 07:00 FiO2 Intake & Output 08/15/24 08/16/24 08/16/24 18:59 06:59 18:59 Intake Total 950 118 Output Total 5 Balance 945 118 Weight 92.533 kg Intake: IV 950 Oral 118 Output: Estimated Blood Loss 5 Other: Voiding Method Toilet Toilet # Voids 4 1 # Bowel Movements 0 - Exam GENERAL DESCRIPTION: An elderly male lying in bed in no distress RESPIRATORY SYSTEM: Unlabored breathing , decreased breath sounds at bases HEART: S1 S2 regular rate and rhythm , ABDOMEN: Soft , no tenderness EXTREMITIES: Right wrist is currently dressed in OR dressing - Labs CBC & Chem 7: 08/15/24 04:12 08/15/24 04:12 Labs: Microbiology - Last 24 Hours (Table) 08/15/24 20:41 Gram Stain - Preliminary Wrist - Right Assessment and Plan (1) Cutaneous abscess of right wrist Current Visit: Yes Status: Acute Code(s): L02.413 - CUTANEOUS ABSCESS OF RIGHT UPPER LIMB SNOMED Code(s): 28798160953731142 (2) Right arm cellulitis Current Visit: Yes Status: Acute Code(s): L03.113 - CELLULITIS OF RIGHT UPPER LIMB SNOMED Code(s): 84103646559881901 Plan: 1patient presented to hospital with right wrist puncture wound with secondary cellulitis will need to cover for the gram-positive skin namita to the likely pathogen, cramp-like infection less likely bilateral excluded. 2patient is status post drainage of the right wrist abscess removal of the for eign body and carpal tunnel release no follow-up ID report is currently pending cultures obtained which are currently pending 3we will continue the patient on IV cefepime till we can reevaluate the wound to see the depth of infection and determine his discharge antibiotics, discussed with admitting physician Dictation was produced using [employer] dictation software. please excuse any grammatical, word or spelling errors. Time with Patient: Less than 30
--- NOTE | 2024-08-16 19:15 | P.OP ---
Date of Procedure: 08/15/24 Preoperative Diagnosis: 1. RIGHT WRIST VOLAR ABSCESS 2. PUNCTURE WOUND RIGHT VOLAR WRIST Postoperative Diagnosis: 1. RIGHT WRIST VOLAR ABSCESS 2. PUNCTURE WOUND RIGHT VOLAR WRIST 3. FOREIN BODY RIGHT VOLAR WRIST 4. CARPAL TUNNEL SYNDROME RIGHT Procedure(s) Performed: 1. INCISION AND DRAINAGE WITH EXCISIONAL DEBRIDEMENT RIGHT VOLAR WRIST 3X3X2 CM USING KNIFE FOR SKIN AND NECROTIC TISSUES, PIPE CREW FOREMAN FOR FOREING BODY REMVAL 2. RIGHT CARPAL TUNNE RELEASE Implants: NONE Anesthesia: MAC Surgeon: [employer] Buyer #1: Amrik Keene (WAS PRESENT AND ASSISTED WITH ALL ASPECTS OF THE CASE FROM POSITION TO DRESSING PLACEMENT) Estimated Blood Loss (ml): 20 IV fluids (ml): 500 Urine output (ml): 0 Pathology: other (2 VOLAR WRSIT RIGHT) Condition: stable Disposition: PACU Indications for Procedure: 84 yo male [place] hitting what he states was a bolt that punctured his wrist over the ulnar aspect just prox imal to the wrist crease. He states this has "festered" for the past three days, and has only gotten worse so he came in. He states pain in the wrist and where it is draining from this wound as well as the feeling of something in there. He denies any f/c/sob/cp at this time. He denies any other injury. He has been on IVABX now with little to no improvment so we discussed what to do in the form or surgery and he is on board. He will need I&D. He agrees. Risks, benefits and alternatives discussed at length. He understands risks and is wiling to assume the risk and all the risks of surgery up to and including . He was ready to proceed with surgery. Description of Procedure: The patient was seen and examined in the preoperative area. All preoperative protocols were followed. Informed consent was obtained risks and benefits of the procedure were discussed at length. Risks including bleeding infection damage to the surrounding tissue and risk of reoperation were discussed with the patient. Risk of anesthesia up to and including was a discussed with the patient. These are outlined in the risk reviewed. They were willing to accept these risks and all of the risks of surgery. The patient was given a weight- based dose of antibiotics in the form of 2 g ancef from flloor. The patient was seen and evaluated by the anesthesia team who deemed them fit for surgery. The site was marked, the patient was willing to proceed with the procedure. The patient was transferred to the operative suite by the Department of anesthesia. There were then drifted off to sleep by the department of anesthesia and Coleman with local anesthesia was used. Once adequate anesthesia had been obtained the patient was carefully transferred to the operative bed. All bony prominences were padded accordingly. SCDs were placed on the nonoperative lower extremities. Arms were well padded. Right upper extremity was placed on arm board and a tourniquet was placed over the patient's right upper forearm Preoperative briefing was done with the operative team and everyone was ready for the procedure to start. The patients right arm and hand was then prepped and draped in the normal sterile fashion. Timeout was then performed and all parties in agreement with the procedure to be performed. The volar aspect of the right wrist was explored just proximal to the wrist crease there is a puncture wound is approximately 1 x 1 cm and was purulence this was cultured deep and superficial. Purulence was expressed from this area. Due to his Cecilio tingling preop we opted for carpal tunnel release. Standard carpal tunnel incision was made dissecting down bluntly to the transverse carpal ligament was identified as was incised transversely its fibers. This opened the carpal tunnel was extended proximally and distally for full decompression. We then extended the incision proximally over the wrist crease at an angle towards the actual puncture wound which revealed that this puncture wound very deep into this area so much so it was on the bone of the radius on the ulnar side. We explored this area and decompressed and debrided it upon exploration we noted large fragments of wood which had embedded themselves into this wound. These were removed entirely 3 pieces along 1 cm each were removed. We then debrided the tract in the area using curettes, right chin and irrigated it was run through the area then. The wrist was taken through a range of motion and there was no synovial fluid noted. After copious irrigation debridement the wound was then loosely closed with 3-0 nylon in a simple fashion drains were placed Silastic to allow for drainage and the wound was dressed with Adaptic 4 x 4 abd and webril. This was then overwrapped with an Hank wrap.d The patient was then transferred back to their hospital bed. There were awakened by department of anesthesia having tolerated the procedure very well with no complications. The patient was then transported to the postoperative care unit in stable condition.
[2024-08-17 05:01] VITALS: RESP 18
[2024-08-17] MEDS: TAMSULOSIN 0.4 MG CAP.ER.24H PO PRN (06:34)
[2024-08-17 08:18] VITALS: BP 134/78; PULSE 60; TEMP 98.2
--- NOTE | 2024-08-17 08:31 | P.PN ---
Subjective Progress Note Date: 08/17/24 Principal diagnosis: Right wrist abscess Patient was evaluated at bedside, he is resting in his hospital bed. He notes minimal discomfort in the right hand/wrist. Denies headaches, lightheadedness, chest pain, shortness of breath, fever or chills Objective - Vital Signs Vital signs: Vital Signs Temp 98.2 F 08/17/24 08:00 Pulse 60 08/17/24 08:00 Resp 18 08/17/24 08:00 BP 134/78 08/17/24 08:00 Pulse Ox 95 08/17/24 08:00 FiO2 Intake & Output 08/16/24 08/17/24 08/17/24 18:59 06:59 18:59 Intake Total 354 Balance 354 Intake: Oral 354 Other: Voiding Method Toilet # Voids 2 2 - Exam Right upper extremity: Postop dressing was removed today at bedside, sutures are all in good position and condition. Erythema seems to be improved since initial surgery. He is able to wiggle all the fingers minimal difficulty, swelling seems to be improving slightly in the fingers. Sensation to light touch is intact throughout the extremity. Skin is warm to touch - Labs CBC & Chem 7: 08/15/24 04:12 08/15/24 04:12 Labs: Microbiology - Last 24 Hours (Table) 08/15/24 20:41 Gram Stain - Preliminary Wrist - Right Wound Culture - Preliminary Enterobacter cloacae Assessment and Plan Assessment: Postoperative day #2 status post I&D right wrist abscess, foreign body removal, carpal tunnel release Right wrist abscess Right wrist foreign body Other medical comorbidities Plan: Monitor dressing Culture showing Enterobacter Colace, awaiting sensitivity Ice wrist for symptomatic relief, patient is able to move all fingers and will continue to do this to help with swelling Other medical specialty recommendations appreciated Discharge planning: On orthopedic standpoint patient is stable for discharge, follow-up information will be placed in chart. Wound care instructions will also be placed in chart. Time with Patient: Less than 30
--- NOTE | 2024-08-17 14:16 | P.DS ---
Providers Date of admission: 08/16/24 08:10 Expected date of discharge: 08/17/24 Attending physician: Saurav Guajardo MD Consults: 08/14/24 11:37 Consult Physician Routine Consulting Provider: Yrn Carmichael Consult Reason/Comments: hand infection Do you want consulting provider notified?: Yes 08/14/24 14:07 Consult Physician Routine Consulting Provider: Nathan Green Consult Reason/Comments: R HAND INFECTITON Do you want consulting provider notified?: Yes Primary care physician: Chery Dunn MD Hospital Course: 84-year-old male with a PMH of BPH who presents to the emergency room transferred from [facility] for right hand and arm infection. The patient reports that this past Wednesday he was walking with an old deadbolt when he fell and suffered an abrasion of his right wrist where he landed on the deadbolt. Attempted a trial of Keflex and 4 doses of IV Zosyn which did not improve his symptoms. In the ED he underwent extensive evaluation. BP 132/76, HR 66, T 98.3F, RR 18, 98% on RA. CBC and CMP significant for Cl 110, total protein 6.1. CRP 4.9. Lactic acid 0.6. Started on Vancomycin and Zosyn. ID and Ortho consulted. Plans for incision and drainage with irrigation and debridement of the abscess on 08/15. 08/15 Patient was seen in the morning. Reports well controlled pain. NPO for possible surgery today. CBC and CMP significant for WBC 4.43, bicarb 21.3. 08/16 Patient was seen and examined. Pain well controlled. Underwent I&D right wrist abscess, foreign body removal, carpal tunnel release yesterday. Outside facility culture growing Enterobacter. Vancomycin and Zosyn switched to Cefepime by ID yesterday. OR cultures obtained yesterday shows few PMN and no organisms. No new labs done today. Ortho plans to re-dress tomorrow. Discussed with Dr. Carmichael, continue to monitor for one more day. 08/17 Patient was seen and examined. No complaints. WCx growing Enterococcus. Discussed with Dr. Carmichael, OK for discharge Ciprofloxacin for 10 days. Patient to follow up with Dr. Green on 08/[address] Carmichael on 08/23. General: non toxic, no distress, appears at stated age Derm: warm, dry Head: atraumatic, normocephalic, symmetric Eyes: EOMI, no lid lag, anicteric sclera Mouth: no lip lesion, mucus membranes moist Cardiovascular: S1S2 reg, no murmur Lungs: Decreased BS bilateral, no rhonchi, no rales , no accessory muscle use Ext: no gross muscle atrophy, no edema, no contractures, R hand wrapped dressing c/d/i Neuro: no focal neuro deficits Psych: Alert, oriented, appropriate affect Discharge Diagnosis: Right wrist lesion with cellulitis, failed outpatient treatment AFib BPH This complex discharge took 35 minutes to complete. Patient Condition at Discharge: Good Plan - Discharge Summary New Discharge Prescriptions: New HYDROcodone/APAP 5-325MG [[place] 5-325] 1 each PO Q6HR PRN #12 tab PRN Reason: Pain Ciprofloxacin HCl [Cipro] 500 mg PO Q12HR 10 Days #20 tab Acetaminophen Tab [Tylenol] 650 mg PO Q6HR PRN tab PRN Reason: Mild Pain Or Fever > 100.5 Continue Dabigatran [Pradaxa] 150 mg PO BID Tamsulosin [Flomax] 0.4 mg PO DAILY PRN PRN Reason: URINARY RETENTION Sotalol [Betapace] 40 mg PO Q12H Multivitamins, Thera [Multivitamin (formulary)] 1 tab PO DAILY Fluticasone Nasal [place] [Flonase Nasal [place]] 1 spray EA NOSTRIL DAILY Allergy Otc 1 tab PO DAILY Discontinued Cephalexin [Keflex] 750 mg PO BID Discharge Medication List Allergy Otc 1 tab PO DAILY 08/14/24 [History] Dabigatran [Pradaxa] 150 mg PO BID 08/14/24 [History] Fluticasone Nasal [place] [Flonase Nasal [place]] 1 spray EA NOSTRIL DAILY 08/14/24 [History] Multivitamins, Thera [Multivitamin (formulary)] 1 tab PO DAILY 08/14/24 [History] Sotalol [Betapace] 40 mg PO Q12H 08/14/24 [History] Tamsulosin [Flomax] 0.4 mg PO DAILY PRN 08/14/24 [History] Acetaminophen Tab [Tylenol] 650 mg PO Q6HR PRN tab 08/17/24 [Rx] Ciprofloxacin HCl [Cipro] 500 mg PO Q12HR 10 Days #20 tab 08/17/24 [Rx] HYDROcodone/APAP 5-325MG [[place] 5-325] 1 each PO Q6HR PRN #12 tab 08/17/24 [Rx] Follow up Appointment(s)/Referral(s): Chery Dunn MD [Primary Care Provider] - 1 Week Nathan Green DO [Doctor of Osteopathic Medicine] - 08/30/24 10:00 am (please arrive 15 minutes early for paper work. ) Yrn Carmichael MD [STAFF PHYSICIAN] - 08/23/24 3:00 pm Patient Instructions/Handouts: Cellulitis (ED), Abscess (ED) Activity/Diet/Wound Care/Special Instructions: Orthopedic discharge instructions: 1. Keep incision covered and dry while showering 2. Okay to utilize antibacterial soap and several washcloth to wash around the wound 3. Basic bandage, change twice a day 4. Avoid excess use of the hand, basic hand and wrist exercises are okay 5. Follow-up with [facility] in 10 days, contact office with any acute issues or questions [phone] Discharge Disposition: HOME SELF-CARE
--- NOTE | 2024-08-17 15:06 | P.PN ---
Subjective Progress Note Date: 08/17/24 Principal diagnosis: Reason for follow-up is right wrist and forearm cellulitis Patient is a 84-year-old male with a past medical history of kidney for reflux sleep apnea prostate disorder apparently the patient did have injury to the right wrist and subsequent developing cellulitis for the patient has been transferred to this facility culture done at the outside facility came back positive with Enterobacter.Patient is status post I&D right wrist abscess foreign body removal and carpal tunnel release procedure completed on 08/16/2024 no follow-up needed report is currently pending On today's evaluation that is 08/17/2024, the patient continues to be afebrile, the patient is on room air and breathing comfortably, the Pt denies having any chest pain or cough, the patient denies having any abdominal pain no vomiting or any diarrhea has been reported by the nursing staff patient pain to the right wrist area has decreased in intensity. No new lab has been repeated today Objective - Vital Signs Vital signs: Vital Signs Temp 98.2 F 08/17/24 08:00 Pulse 60 08/17/24 08:00 Resp 18 08/17/24 08:00 BP 134/78 08/17/24 08:00 Pulse Ox 95 08/17/24 08:00 FiO2 Intake & Output 08/16/24 08/17/24 08/17/24 18:59 06:59 18:59 Intake Total 354 118 Balance 354 118 Intake: Oral 354 118 Other: Voiding Method Toilet # Voids 2 2 - Exam GENERAL DESCRIPTION: An elderly male lying in bed in no distress RESPIRATORY SYSTEM: Unlabored breathing , decreased breath sounds at bases HEART: S1 S2 regular rate and rhythm , ABDOMEN: Soft , no tenderness EXTREMITIES: Right wrist did have stitches intact no open wound or any drainage redness has decreased - Labs CBC & Chem 7: 08/15/24 04:12 08/15/24 04:12 Labs: Microbiology - Last 24 Hours (Table) 08/15/24 20:41 Gram Stain - Preliminary Wrist - Right Wound Culture - Preliminary Enterobacter cloacae Assessment and Plan (1) Cutaneous abscess of right wrist Status: Acute Code(s): L02.413 - CUTANEOUS ABSCESS OF RIGHT UPPER LIMB SNOMED Code(s): 53282453858730819 (2) Right arm cellulitis Status: Acute Code(s): L03.113 - CELLULITIS OF RIGHT UPPER LIMB SNOMED Code(s): 44600346522989354 Plan: 1patient presented to hospital with right wrist puncture wound with secondary cellulitis will need to cover for the gram-positive skin namita to the likely pathogen, cramp-like infection less likely bilateral excluded. 2patient is status post drainage of the right wrist abscess removal of the foreign body and carpal tunnel release 3patient seem to have shown clinical improvement we will be able to finish therapy with oral Cipro x 10 days on discharge and close outpatient follow-up discussed with the admitting physician working on discharge Dictation was produced using [email or web address] dictation software. please excuse any grammatical, word or spelling errors. Time with Patient: Less than 30
--- NOTE | 2024-08-31 16:03 | CDI ---
Documentation Clarification Form Date: 08/31/2024 03:55:42 PM From: Cinthya Solares Phone: Admit Date: 08/16/2024 08:10:00 AM Patient Name: Nav Rabago Visit Number: [id number] Discharge Date: 08/17/2024 01:00:00 PM ATTENTION: The Clinical Documentation Specialists (CDI) and [facility] Coding Staff appreciate your assistance in clarifying documentation. Please respond to the clarification below the line at the bottom and electronically sign. The CDI & [facility] Coding staff will review the response and follow-up if needed. Please note: Queries are made part of the Legal Health Record. If you have any questions, please contact the author of this message via ITS. Doctor/Provider: Nathan Green A debridement is documented per OP Note. Additional clarification regarding the procedure is requested. History/Risk Factors: 84yo M, puncture woundon his right wrist w abscesscellulitis growing Enterococcus, CTS, A Fib, BPH, fall Clinical Indicators: fragments of wood which had embedded themselves into thiswound Treatment: extended the incision proximally over the wrist crease at an angle towards the actualpuncture woundwhich revealed that thispuncture woundvery deep into this area so much so it was on the bone of the radius on the ulnar side. We exploredthis area anddecompressedanddebridedit uponexplorationwe noted large fragments of wood which had embedded themselves into thiswound. These wereremovedentirely 3 pieces along 1 cm each wereremoved. Please clarify the depth of Excisional debridement: [ ] Skin [ ] Subcutaneous and fascia [ ] Muscle [ ] Bone [ ] Other; please specify [ ] Unable to determine Five elements required for accurate and compliant documentation of a debridement: Technique used (e.g., excisional, excised, cutting, brushing, jet lavage etc.) Instrument(s) used (e.g., scalpel, curette, etc.) Nature of the tissue removed (e.g., necrotic, devitalized tissues, non-viable tissue, etc.) Appearance and size of the wound (e.g., down to fresh bleeding tissue, 7cm x 10cm, etc.) Depth of the debridement* (e.g., skin, subcutaneous tissue, fascia, muscle, bone, etc.) (Template Last Revised: January 2021) [ x ] Skin [ x ] Subcutaneous and fascia [ x] Muscle [x ] Bone all were done with skin knife, curette, forceps, rongure and irrigant. MTDD
== END 2024-08-17 13:00 | disposition home or self-care (01) | DRG 906 ==
LOC: EC 00:22 → 6NMEDSUR 04:02 → OBSVTOIN 08-16 08:10
PROVIDERS: ADMIT Internal Medicine; ATTEND Internal Medicine
PROC: 0PBH0ZZ Excision of Right Radius, Open Approach (ICD-10-PCS; principal; 2024-08-15 12:35)
PROC: 01N50ZZ Release Median Nerve, Open Approach (ICD-10-PCS; principal; 2024-08-15 12:35)
PROC: 0X9 Anatomical Regions, Upper Extremities, Drainage (ICD-10-PCS; principal; 2024-08-15 12:35)
DX: S61.541A Puncture wound with foreign body of right wrist, initial encounter (principal); L02.413 Cutaneous abscess of right upper limb; L03.113 Cellulitis of right upper limb; G56.01 Carpal tunnel syndrome, right upper limb; I48.91 Unspecified atrial fibrillation; N40.0 Benign prostatic hyperplasia without lower urinary tract symptoms; B95.2 Enterococcus as the cause of diseases classified elsewhere; W01.198A Fall on same level from slipping, tripping and stumbling with subsequent striking against other object, initial encounter; Y92.79 Other farm location as the place of occurrence of the external cause; Z79.01 Long term (current) use of anticoagulants; Z79.02 Long term (current) use of antithrombotics/antiplatelets; Z79.899 Other long term (current) drug therapy; Z86.73 Personal history of transient ischemic attack (TIA), and cerebral infarction without residual deficits
CPT/HCPCS: 36415; 80053; 83605; 85025; 86140; 87070; 87075; 87077; 87186; 87205; 96365; 96366; 99285